=== PATIENT | male | born 1975 | race Caucasian/White ===

== ENCOUNTER 2022-10-04 09:11 | Outpatient (REF) | payer MEDICAID, OTHER, SELFPAY ==
[2022-10-04 15:22] LABS: Alanine Aminotransferase 25 U/L (0-40); Albumin Level 4.5 g/dL (3.5-5.0); Alkaline Phosphatase 69 U/L (39-117); Anion Gap 16 (12-20); Aspartate Amino Transferase 29 U/L (5-37); Blood Urea Nitrogen 23 mg/dL (9-16); Calcium 9.8 mg/dL (8.4-10.2); Carbon Dioxide 23 mmol/L (22-29); Chloride 99 mmol/L (96-108); Cholesterol 184 mg/dL; Estimated Glomerular Filt Rate > 60; Glucose Fasting 106 mg/dL (60-99); HDL Cholesterol 52 mg/dL; LDL Cholesterol Calculated 99 mg/dl; Potassium 3.9 mmol/L (3.3-5.1); Sodium 134 mmol/L (135-145); Total Protein 7.9 g/dL (6.5-8.0); Triglycerides 169 mg/dL
[2022-10-04 15:50] LABS: Folate 15.1 ng/mL (> or = 4.0); Vitamin B12 817 pg/mL (200-900)
== END 2022-10-04 09:12 | disposition home or self-care (01) ==
LOC: HO.CHCLDS 09:11
PROVIDERS: Visit Provider Internal Medicine
DX: E11.65 Type 2 diabetes mellitus with hyperglycemia (principal); F10.20 Alcohol dependence, uncomplicated
CPT/HCPCS: 36415; 80053; 80061; 82607; 82746

== ENCOUNTER 2022-10-31 10:01 | Outpatient (REF) | payer MEDICAID, OTHER, SELFPAY ==
[2022-11-01 04:28] LABS: ~HepC Num1 0.06 S/CO (0.00-0.79); ~Hepatitis C Antibody Nonreactive (Nonreactive)
[2022-11-01 04:40] LABS: Syphilis Screen Nonreactive (Nonreactive)
[2022-11-01 15:34] LABS: HIV RNA PCR Qn Copies NOT DETECTED copies/mL (NOT DETECTED); HIV RNA PCR Qn Log Copies NOT DETECTED (NOT DETECTED)
== END 2022-10-31 10:02 | disposition home or self-care (01) ==
LOC: HO.HHCL 10:01
PROVIDERS: Visit Provider Internal Medicine
DX: Z11.4 Encounter for screening for human immunodeficiency virus [HIV] (principal); Z11.3 Encounter for screening for infections with a predominantly sexual mode of transmission
CPT/HCPCS: 36415; 82550; 86780; 86803; 87536

== ENCOUNTER 2022-11-09 13:13 | Outpatient (REF) | payer MEDICAID, OTHER, SELFPAY ==
[2022-11-11 19:08] LABS: HIV RNA PCR Qn Copies NOT DETECTED copies/mL (NOT DETECTED); HIV RNA PCR Qn Log Copies NOT DETECTED (NOT DETECTED)
== END 2022-11-09 13:14 | disposition home or self-care (01) ==
LOC: HO.HHCL 13:13
PROVIDERS: Visit Provider Family Medicine
DX: Z11.4 Encounter for screening for human immunodeficiency virus [HIV] (principal); Z79.899 Other long term (current) drug therapy
CPT/HCPCS: 36415; 87536

== ENCOUNTER 2022-12-07 13:17 | Outpatient (REF) | payer MEDICAID, OTHER, SELFPAY ==
[2022-12-11 16:09] LABS: HIV RNA PCR Qn Copies NOT DETECTED copies/mL (NOT DETECTED); HIV RNA PCR Qn Log Copies NOT DETECTED (NOT DETECTED)
== END 2022-12-07 13:18 | disposition home or self-care (01) ==
LOC: HO.HHCL 13:17
PROVIDERS: Visit Provider Family Medicine
DX: Z79.899 Other long term (current) drug therapy (principal)
CPT/HCPCS: 36415; 87536

== ENCOUNTER 2023-01-12 11:34 | Outpatient (REF) | payer MEDICAID, OTHER, SELFPAY ==
[2023-01-12 14:45] LABS: Estimated Average Glucose 131 mg/dL; Hemoglobin A1c % 6.2 % (<6.0)
[2023-01-12 15:01] LABS: Alanine Aminotransferase 15 U/L (0-40); Albumin Level 4.3 g/dL (3.5-5.0); Alkaline Phosphatase 70 U/L (39-117); Anion Gap 11 (12-20); Aspartate Amino Transferase 15 U/L (5-37); Bilirubin Total 0.7 mg/dL (0.0-1.0); Blood Urea Nitrogen 17 mg/dL (9-16); Calcium 9.6 mg/dL (8.4-10.2); Carbon Dioxide 29 mmol/L (22-29); Chloride 100 mmol/L (96-108); Cholesterol 227 mg/dL (<200); Estimated Glomerular Filt Rate > 60; Glucose Fasting 114 mg/dL (60-99); HDL Cholesterol 36 mg/dL (>40); LDL Cholesterol Calculated 147 mg/dL (<100); Potassium 4.1 mmol/L (3.3-5.1); Sodium 136 mmol/L (135-145); Total Protein 7.6 g/dL (6.5-8.0); Triglycerides 222 mg/dL (<150)
[2023-01-12 15:29] LABS: Creatinine Urine 24.81 mg/dL; Microalbumin Urine < 5.0 mg/L
== END 2023-01-12 11:35 | disposition home or self-care (01) ==
LOC: HO.CHCLDS 11:34
PROVIDERS: Visit Provider Internal Medicine
DX: E11.65 Type 2 diabetes mellitus with hyperglycemia (principal)
CPT/HCPCS: 36415; 80053; 80061; 82043; 82570; 83036

== ENCOUNTER 2023-02-01 13:16 | Outpatient (REF) | payer MEDICAID, OTHER, SELFPAY ==
[2023-02-02 03:43] LABS: Syphilis Screen Nonreactive (Nonreactive)
[2023-02-02 03:54] LABS: ~HepC Num1 0.08 S/CO (0.00-0.79); ~Hepatitis C Antibody Nonreactive (Nonreactive)
[2023-02-07 19:04] LABS: HIV RNA PCR Qn Copies NOT DETECTED copies/mL (NOT DETECTED); HIV RNA PCR Qn Log Copies NOT DETECTED (NOT DETECTED)
== END 2023-02-01 13:17 | disposition home or self-care (01) ==
LOC: HO.HHCL 13:16
PROVIDERS: Visit Provider Internal Medicine
DX: Z11.4 Encounter for screening for human immunodeficiency virus [HIV] (principal); Z79.899 Other long term (current) drug therapy
CPT/HCPCS: 36415; 86780; 86803; 87536

== ENCOUNTER 2023-03-29 13:16 | Outpatient (REF) | payer MEDICAID, OTHER, SELFPAY ==
[2023-03-29 16:59] LABS: Alanine Aminotransferase 22 U/L (0-40); Albumin Level 4.4 g/dL (3.5-5.0); Alkaline Phosphatase 68 U/L (39-117); Aspartate Amino Transferase 18 U/L (5-37); Bilirubin Direct 0.2 mg/dL (0.0-0.5); Bilirubin Total 0.7 mg/dL (0.0-1.0); Cholesterol 141 mg/dL (<200); HDL Cholesterol 32 mg/dL (>40); LDL Cholesterol Calculated 82 mg/dL (<100); Total Protein 7.7 g/dL (6.5-8.0); Triglycerides 139 mg/dL (<150)
[2023-03-31 12:53] LABS: HIV RNA PCR Qn Copies NOT DETECTED copies/mL (NOT DETECTED); HIV RNA PCR Qn Log Copies NOT DETECTED (NOT DETECTED)
== END 2023-03-29 13:17 | disposition home or self-care (01) ==
LOC: HO.HHCL 13:16
PROVIDERS: Internal Medicine; Visit Provider Nurse Practitioner Primary Care
DX: Z11.4 Encounter for screening for human immunodeficiency virus [HIV] (principal); E78.2 Mixed hyperlipidemia; Z79.899 Other long term (current) drug therapy
CPT/HCPCS: 36415; 80061; 80076; 87536

== ENCOUNTER 2023-05-24 13:36 | Outpatient (REF) | payer MEDICAID, OTHER, SELFPAY ==
[2023-05-25 04:02] LABS: Syphilis Screen Nonreactive (Nonreactive)
[2023-05-25 04:12] LABS: ~HepC Num1 0.08 S/CO (0.00-0.79); ~Hepatitis C Antibody Nonreactive (Nonreactive)
[2023-05-26 20:14] LABS: HIV RNA PCR Qn Copies NOT DETECTED copies/mL (NOT DETECTED); HIV RNA PCR Qn Log Copies NOT DETECTED (NOT DETECTED)
== END 2023-05-24 13:37 | disposition home or self-care (01) ==
LOC: HO.HHCL 13:36
PROVIDERS: Visit Provider Internal Medicine
DX: Z79.899 Other long term (current) drug therapy (principal)
CPT/HCPCS: 36415; 86780; 86803; 87536

== ENCOUNTER 2023-07-19 10:51 | Outpatient (REF) | payer MEDICAID, OTHER, SELFPAY ==
[2023-07-19 12:03] LABS: Estimated Average Glucose 186 mg/dL; Hemoglobin A1c % 8.1 % (<6.0)
[2023-07-19 12:42] LABS: Alanine Aminotransferase 26 U/L (0-40); Albumin Level 4.1 g/dL (3.5-5.0); Alkaline Phosphatase 85 U/L (39-117); Anion Gap 11 (12-20); Aspartate Amino Transferase 17 U/L (5-37); Bilirubin Total 0.6 mg/dL (0.0-1.0); Blood Urea Nitrogen 12 mg/dL (9-16); Carbon Dioxide 23 mmol/L (22-29); Chloride 109 mmol/L (96-108); Cholesterol 134 mg/dL (<200); Estimated Glomerular Filt Rate > 60; Glucose Random 172 mg/dL (60-115); HDL Cholesterol 34 mg/dL (>40); LDL Cholesterol Calculated 80 mg/dL (<100); Potassium 4.1 mmol/L (3.3-5.1); Sodium 139 mmol/L (135-145); Total Protein 7.1 g/dL (6.5-8.0); Triglycerides 103 mg/dL (<150)
[2023-07-20 13:04] LABS: HIV RNA PCR Qn Copies NOT DETECTED copies/mL (NOT DETECTED); HIV RNA PCR Qn Log Copies NOT DETECTED (NOT DETECTED)
== END 2023-07-19 10:52 | disposition home or self-care (01) ==
LOC: HO.HHCL 10:51
PROVIDERS: Visit Provider Internal Medicine
DX: E11.65 Type 2 diabetes mellitus with hyperglycemia (principal); Z79.899 Other long term (current) drug therapy
CPT/HCPCS: 36415; 80053; 80061; 83036; 87536

== ENCOUNTER 2023-09-13 13:28 | Outpatient (REF) | payer MEDICAID, OTHER, SELFPAY ==
[2023-09-14 05:17] LABS: Syphilis Screen Nonreactive (Nonreactive); ~HepC Num1 0.05 S/CO (0.00-0.79); ~Hepatitis C Antibody Nonreactive (Nonreactive)
[2023-09-17 13:38] LABS: HIV RNA PCR Qn Copies NOT DETECTED copies/mL (NOT DETECTED); HIV RNA PCR Qn Log Copies NOT DETECTED (NOT DETECTED)
== END 2023-09-13 13:29 | disposition home or self-care (01) ==
LOC: HO.HHCL 13:28
PROVIDERS: Visit Provider Internal Medicine
DX: Z79.899 Other long term (current) drug therapy (principal)
CPT/HCPCS: 36415; 86780; 86803; 87536

== ENCOUNTER 2023-11-08 11:18 | Outpatient (REF) | payer MEDICAID, OTHER, SELFPAY ==
[2023-11-08 13:45] LABS: Estimated Average Glucose 134 mg/dL; Hemoglobin A1c % 6.3 % (<6.0)
[2023-11-10 15:33] LABS: HIV RNA PCR Qn Copies NOT DETECTED copies/mL (NOT DETECTED); HIV RNA PCR Qn Log Copies NOT DETECTED (NOT DETECTED)
== END 2023-11-08 11:19 | disposition home or self-care (01) ==
LOC: HO.HHCL 11:18
PROVIDERS: Visit Provider Internal Medicine
DX: Z79.899 Other long term (current) drug therapy (principal); E11.9 Type 2 diabetes mellitus without complications
CPT/HCPCS: 36415; 83036; 87536

== ENCOUNTER 2024-01-04 11:20 | Outpatient (REF) | payer MEDICAID, OTHER, SELFPAY ==
[2024-01-05 03:34] LABS: Syphilis Screen Nonreactive (Nonreactive)
[2024-01-07 19:58] LABS: HIV RNA PCR Qn Copies NOT DETECTED copies/mL (NOT DETECTED); HIV RNA PCR Qn Log Copies NOT DETECTED (NOT DETECTED)
== END 2024-01-04 11:21 | disposition home or self-care (01) ==
LOC: HO.HHCL 11:20
PROVIDERS: Visit Provider Internal Medicine
DX: Z79.899 Other long term (current) drug therapy (principal)
CPT/HCPCS: 36415; 86780; 87536

== ENCOUNTER 2024-01-22 13:07 | Outpatient (REF) | payer MEDICAID, OTHER, SELFPAY ==
[2024-01-22 15:15] LABS: Alanine Aminotransferase 22 U/L (0-40); Albumin Level 4.3 g/dL (3.5-5.0); Alkaline Phosphatase 71 U/L (39-117); Anion Gap 11 (12-20); Aspartate Amino Transferase 26 U/L (5-37); Bilirubin Total 0.8 mg/dL (0.0-1.0); Blood Urea Nitrogen 20 mg/dL (9-16); Calcium 9.3 mg/dL (8.4-10.2); Carbon Dioxide 25 mmol/L (22-29); Chloride 102 mmol/L (96-108); Cholesterol 139 mg/dL (<200); Estimated Glomerular Filt Rate > 60; Glucose Random 128 mg/dL (60-115); HDL Cholesterol 32 mg/dL (>40); LDL Cholesterol Calculated 83 mg/dL (<100); Potassium 3.9 mmol/L (3.3-5.1); Sodium 134 mmol/L (135-145); Total Protein 7.5 g/dL (6.5-8.0); Triglycerides 120 mg/dL (<150)
== END 2024-01-22 13:08 | disposition home or self-care (01) ==
LOC: HO.CHCLDS 13:07
PROVIDERS: Visit Provider Internal Medicine
DX: E11.9 Type 2 diabetes mellitus without complications (principal)
CPT/HCPCS: 36415; 80053; 80061

== ENCOUNTER 2024-03-07 11:23 | Outpatient (REF) | payer MEDICAID, OTHER, SELFPAY ==
[2024-03-07 13:18] LABS: Alanine Aminotransferase 25 U/L (0-40); Albumin Level 4.6 g/dL (3.5-5.0); Alkaline Phosphatase 78 U/L (39-117); Aspartate Amino Transferase 22 U/L (5-37); Bilirubin Direct 0.3 mg/dL (0.0-0.5); Total Protein 7.8 g/dL (6.5-8.0)
== END 2024-03-07 11:24 | disposition home or self-care (01) ==
LOC: HO.HHCL 11:23
PROVIDERS: Visit Provider Internal Medicine
DX: Z79.899 Other long term (current) drug therapy (principal)
CPT/HCPCS: 36415; 80076; 87536

== ENCOUNTER 2024-05-02 11:51 | Outpatient (REF) | payer MEDICAID, OTHER, SELFPAY ==
--- OUTSIDE RECORDS SUMMARY | 2024-05-02 13:44 | XMS_ITS | Encounter Summary ---
Author Organization [employer] Address [address] [facility] [address] [place] [address] Care Team Providers Care Template Reproduction Technician Name Role Phone Lee Vines MD Primary Care Prov ider Tamika Snyder DDS Unavailable [phone] Encounter Details Date Type Department Care Team ([facility] Contact Info) Description 04/10/2022 Orders Only [facility] MEDICINE [address] [place], [place] [phone] Lee Vines MD [address] [place], [place] [phone] On pre-exposure prophylaxis for HIV (Primary Dx) Social History Tobacco Use Types Packs/Day Years Used Date Smoking Tobacco: Some Days Cigarettes Smokeless Tobacco: Never Sex and Gender Information Value Date Recorded Sex Assigned at Male 12/26/2021 10:36 AM EDT Legal Sex Male 10:36 AM EDT Gender Identity Male 12/26/2021 10:36 AM EDT Sexual Orientation Straight 05/02/2022 9: 18 AM EST COVID-19 Exposure Response Date Recorded In the last 10 days, have yo u been in contact with someone who was confirmed or suspected to have Coronavirus/COVID-19? No / Unsure 04/04/2022 8:27 AM EST documented as of this encounter Plan of Treatment Upcoming Encounters Date Type Department Care Team (Late Contact Info) Description 05/08/2024 9:45 AM EDT Telemedicine [facility] MED & PEDS [address] [place], [place] [phone] Lee Vines MD [address] [place], [place] [phone] 07/04/2024 11:00 AM EDT Clinical Support [facility] [address] [place] [address] Guerita Fall, RN [address] [place] [address] documented as of this encounter Visit Diagnoses Diagnosis On pre-exposure prophylaxis for HIV- Primary documented in this encounter Care Teams Template Reproduction Technician Relationship Specialty Start Date End Date Lee Vines MD [address] [place] [address] PCP - General Internal Medicine 09/05/19 Tamika Snyder DDS [address] [place] [address] Dental Produce Sorter 01/30/24 documented as of this encounter
--- OUTSIDE RECORDS SUMMARY | 2024-05-02 13:44 | XMS_ITS | Clinical Summary ---
Author Organization [employer] [facility] it[facility] Address [address] [place] [address] Care Team Providers Care Naturopathic Oncology Provider Name Role Phone Haydee Frazier MD Primary Care Provider [phone] Family History Relation Name Status Comments Father Alive unknown Mother Alive dm, Social History Tobacco Use Types Packs/Day Years Used Date Smoking Tobacco: Never Alcohol Use Standard Drinks/Week Comments No 0 (1 standard drink = 0.6 oz pur e alcohol) Sex and Gender Information Value Date Recorded Sex Assigned at Not on file Legal Sex Male 7:33 PM EST Gender Identity Not on file Sexual Orientation Not on file Obstetrics History Plan of Treatment Health Maintenance Due Date Last Done Comments DTaP,Tdap,and Td Vaccines (1 - Tdap) 02/15/1995 Hepatitis B Vaccines (1 of 3 - 19+ 3-dose series) 02/15/1995 Cholesterol Screening (Lipid Panel) 03/27/2023 Colorectal Cancer Screening: Colonoscopy 03/27/2023 Depression Screening 03/27/2023 HIV Screening 03/27/2023 Hepatitis C Screening 03/27/2023 Social Influencers of Health Screening 03/27/2023 COVID-19 Vaccine ( - 2023-2 5 season) 2023 Influenza Vaccine (#1) 2023 HIB Vaccines Aged Out No longer eligi ble based on patient's age to complete this topic HPV Vaccines Aged Out No longer eligi ble based on patient's age to complete this topic Hepatitis A Vaccines Aged Out No long er eligible based on patient's age to complete this topic IPV Vaccines Aged Out No longer eligi ble based on patient's age to complete this topic MMR Vaccines Aged Out No longer eligi ble based on patient's age to complete this topic Meningococcal ACWY Vaccine Aged Out N o longer eligible based on patient's age to complete this topic Meningococcal B Vacine Aged Out No lo nger eligible based on patient's age to complete this topic Pneumococcal Vaccine: Pediat rics (0 to 5 Years) and At-Risk Patients (6 to 64 Years) Aged Out No longer eligible b ased on patient's age to complete this topic RSV Immunization Patients Un angelita 20 months Aged Out No longer eligible b ased on patient's age to complete this topic Varicella Vaccines Aged Out No longer eligible based on patient's age to complete this topic Care Teams Naturopathic Oncology Provider Relationship Specialty Start Date End Date Haydee Frazier MD [address] [place] [address] PCP - General 04/20/05
--- OUTSIDE RECORDS SUMMARY | 2024-05-02 13:44 | XMS_ITS | Encounter Summary ---
Author Organization [employer] Address [address] [facility] [address] [address] [place] [address] Care Team Providers Care Automotive Glass Installer Name Role Phone Lee Vines MD Primary Care Prov ider Tamika Snyder DDS Unavailable [phone] Encounter Details Date Type Department Care Team (Latest Contact Info) Description 05/02/2024 11:00 AM EST Clinical Support [facility] MEDICINE [address] [place], [place] [phone] Marj Doherty, RN [address] [place] [address] On pre-exposure prophylaxis for HIV (Primary Dx); Encounter for immunization Social History Tobacco Use Types Packs/Day Years Used Date Smoking Tobacco: Former Cigarettes Passive Smoke Exposure: Past Smokeless Tobacco: Current Comments:vapes Alcohol Use Standard Drinks/Week Comments Yes 6 (1 standard drink = 0.6 oz pur e alcohol) Depression Answer Date Recorded Patient Health Questionnaire-9 Score 0 05/16/2022 Housing Stability Answer Date Recorded What is your housing situation today? I have velia colón 12/11/[address] you li ve. Do you have problems with any of the following? None of the above 12/11/2022 Food Insecurity Answer Date Recorded Within the past 12 months, y ou worried that your food would run out before you got money to buy more: Never True 12/11/2022 Within the past 12 months,th e food you bought just didn't last and you didn't have enough money to get more: Never True Transportation Answer Date Recorded In the past 12 months, has l ack of transportation kept you from medical appts, meetings, work or from getting things needed for daily living? No 12/11/2022 Utilities Answer Date Recorded In the past 12 months, has t he [employer], [employer], oil or water [employer] threatened to shut off services in your home? No 12/11/2022 Depression Answer Date Recorded Patient Health Questionnaire-2 Score 0 05/16/2022 Sex and Gender Information Value Date Recorded Sex Assigned at Male 12/26/2021 10:36 AM EDT Legal Sex Male 10:36 AM EDT Gender Identity Male 12/26/2021 10:36 AM EDT Sexual Orientation Straight 05/02/2022 9: 18 AM EST documented as of this encounter Progress Notes * Marj Doherty RN - 05/02/2024 11:00 AM EST Pt here for 11th injection of APRETUDE (600-mg cabotegravir). Reports tolerating injections well with no concerns. Reviewed and confirmed: Negative HIV-1 ag/ab rapid test today. HIV-1 RNA assay test (HIV VL) negative or pending at time ofvisit - drawn today. No previous hypersensitivity reaction to cabotegravir. Reviewed medication list; pt is not taking carbamazepine, oxcarbazepine, phenobarbital, phenytoin, rifampin, or rifapentine. Pt weighs over 77 lbs. Pt does not have gluteal implants. Pt is not (or has consulted with a provider). N/A Pt does not have any symptoms of acute HIV (fever, fatigue, myalgia, sore throat, rash). LFTs: last done 03/07/24, next due 03/07/25 Hep B: not immune 04/07/22, started on Heplisav-B 05/02/24 All patient questions answered. Reviewed importance of attending lab and injection appointments. Reviewed that medication is an IM injection in gluteal muscle and cannot be taken out once it is given. 600 mg cabotegravir injected IM into L gluteal muscle. Pt advised to not rub the injection sites. Pt tolerated well, advised to remain 20 mins after injection, no adverse reaction noted. Pt given phone number for RN and PrEP navigator if they have any questions. Teaching points reviewed: Importance of adherence to injection and lab monitoring schedule, every 2 mos. Importance of contacting provider/RN for sooner HIV testing: When recent exposures to HIV-1 are suspected or clinical symptoms consistent with acute HIV-1 (eg, fever, fatigue, myalgia, sore throat, rash) are present Upon diagnosis of any other STI Reviewed long ???tail?? effect of medication. Apretude (IM cabotegravir) can be present in the body for up to 12 months after an injection, though not at a level to protect from HIV acquisition. There is a risk that if someone did acquire HIV-1 before, during, or within 12 mos of discontinuation of Apretude, that strain of HIV-1 could be resistant if they are not current on dosing or are not on a different form of PrEP, such as Truvada or Descovy. Counseled on site reaction and side effects (abdominal pain, jaundice, rash, depression etc.) that should be brought to provider attention. PrEP does not protect against STIs other than HIV, or other blood-borne pathogens. If you plan to miss a dose by more than 7 days, let us know as soon as possible so we can plan for this. You can take oral cabotegravir for up to 2 months to cover for 1 missed injection. If you anna dose by accident, contact us as soon as you can so we can make a plan to re-start PrEP - if desired and appropriate. Plan: PrEP Navigator check - in 1 week Thorough STI testing every other visit (every 4 mos) or sooner if needed in addition to HIV testing- done today 05/02/24 (swabs through state [facility]), next due 09/01/24 LFTs - done 03/07/24, next due 03/07/25 Return for HIV testing and Apretude injection: 07/04/24 11 am documented in this encounter Plan of Treatment Upcoming Encounters Date Type Department Care Team (Late st Contact Info) Description 05/08/2024 9:45 AM EDT Telemedicine [facility] CH[facility] MED & PEDS [address] [place], [place] [phone] Lee Vines MD [address] [place] [address] 07/04/2024 11:00 AM EDT Clinical Support [facility] MEDICINE [address] [place] [phone] Guerita Fall, RN [address] [place] [address] Scheduled Orders Name Type Priority Associated Diagnoses Orde r Schedule HIV-1 RNA, Quantitative, Real-Time PCR Lab Routine On pre-exposure prophylaxis for HIV Expected: 05/02/2024 (Approximate), Expires: 05/02/2025 Hepatitis C Antibody with Reflex to HCV, RNA, Quantitative, Real-Time PCR Lab Routine On pre-exposure prophylaxis for HIV Expected: 05/02/2024 (Approximate), Expires: 05/02/2025 Syphilis Screen Lab Routine On pre-exposure prophylaxis for HIV Expected: 05/02/2024 (Approximate), Expires: 05/02/2025 documented as of this encounter Procedures Procedure Name Priority Date/Time Associated Diagnosis Comments POCT RAPID HIV SCREENING Routine 05/02/2024 11:37 AM EST On pre-exposure prophylaxis for HIV documented in this encounter Results * POCT Rapid HIV Screening (05/02/2024 11:37 AM EST) Blood 05/02/2024 11:3 7 AM EST Narrative Marj Doherty, SANTIAGO - 05/02/2024 11:37 AM EST HIV ag/ab = negative Lamin Loco MD POINT OF CARE TEST ENTER/EDIT ORDERABLES Final Result documented in this encounter Visit Diagnoses Diagnosis On pre-exposure prophylaxis for HIV- Primary Encounter for immunization documented in this encounter Administered Medications Inactive Administered Medications - up to 3 most recent administrations Medication Order MAR Action Action Date Dose Rate Site Cabotegravir ER Suspension Extended Release 600 mg 600 mg, Intramuscular, Once, On Sun05/02/24 at 1145, For 1 dose, Ventrogluteal.Indication s:On pre-exposure prophylaxis for HIV Given 05/02/2024 11:45 AM EST 600 mg Left Upper Buttock documented in this encounter Additional Health Concerns Assessment Noted Time PHQ-9 Depression Total Score: 0 05/17/19 23 9:49 AM EDT documented as of this encounter Care Teams Automotive Glass Installer Relationship Specialty Start Date End Date Lee Vines MD [address] [place] [address] PCP - General Internal Medicine 09/05/19 Tamika Snyder DDS [address] [place] [address] Dental Vp Of Customer Experience Strategy 01/30/24 documented as of this encounter
--- OUTSIDE RECORDS SUMMARY | 2024-05-02 13:44 | XMS_ITS | Encounter Summary ---
Author Organization [employer] Address [address] [facility] 7t [place] [address] Care Team Providers Care Entry Examiner Name Role Phone Lee Vines MD Primary Care Prov ider Tamika Snyder DDS Unavailable [phone] Encounter Details Date Type Department Care Team (Latest Contact Info) Description 05/02/2024 Travel Social History Tobacco Use Types Packs/Day Years [...] the past 12 months, has t he electric, gas, oil or water company threatened to shut off services in your [...] Info) Description 05/08/2024 9:45 AM EDT Telemedicine [facility] CHC MED & PEDS [address] [place] [address] Lee Vines MD [address] [place] [address] 07/04/2024 11:00 AM EDT Clinical Support [facility] MEDICINE [address] [place] [address] Guerita Fall, RN [address] [place] [address] documented as of this encounter Visit Diagnoses Not on filedocumented in this encounter Additional Health Concerns Assessment Noted Time PHQ-9 Depression Total Score: 0 05/17/19 23 9:49 AM EDT documented as of this encounter Care Teams Entry Examiner Relationship Specialty Start Date End Date Lee Vines MD [address] [place] [address] PCP - General Internal Medicine 09/05/19 Tamika Snyder DDS [address] [place] [address] Dental Serging Machine Operator 01/30/24 documented as of this encounter
--- OUTSIDE RECORDS SUMMARY | 2024-05-02 13:44 | XMS_ITS | Encounter Summary ---
Author Organization [employer] Address [address] [facility] [address] [place] [address] Care Team Providers Care Line Mechanic Name Role Phone Lee Vines MD Primary Care Prov ider Tamika Snyder DDS Unavailable [phone] Encounter Details Date Type Department Care Team ([facility] st Contact Info) Description 12/19/2022 Orders Only [facility] CH[facility] MED & PEDS [address] [place], [place] [phone] Lee Vines MD [address] [place] [address] Social History Tobacco Use Types Packs/Day Years Used Date Smoking Tobacco: Some Days Cigarettes Passive Smoke Exposure: Never Smokeless Tobacco: Never Alcohol Use Standard Drinks/Week Comments Yes 6 [...] t he electric, gas, oil or water [employer] threatened to shut off services in your [...] Info) Description 05/08/2024 9:45 AM EDT Telemedicine [facility] CH[facility] MED & PEDS [address] [place] [address] Lee Vines MD [address] [place] [address] 07/04/2024 11:00 AM EDT Clinical Support [facility] MEDICINE [address] [place] [address] Guerita Fall, RN [address] [place] [address] documented as of this encounter Visit Diagnoses Not on filedocumented in this encounter Additional Health Concerns Assessment Noted Time PHQ-9 Depression Total Score: 0 05/17/19 23 9:49 AM EDT documented as of this encounter Care Teams Line Mechanic Relationship Specialty Start Date End Date Lee Vines MD [address] [place] [address] PCP - General Internal Medicine 09/05/19 Tamika Snyder DDS [address] [place] [address] Dental Commercial Floor Covering Installer 01/30/24 documented as of this encounter
--- OUTSIDE RECORDS SUMMARY | 2024-05-02 13:44 | XMS_ITS | Clinical Summary ---
Author Organization [employer] Address [address] [facility] [address] [place] [address] Care Team Providers Care Gun Welder Name Role Phone Lee Vines MD Primary Care Prov ider Tamika Snyder DDS Unavailable [phone] Allergies No known active allergies Medications TRUEplus Lancets 33G miscIndications:Ty pe 2 diabetes mellitus with hyperglycemia, without long-term current use of insulin (CMS/HCC) TEST BLOOD SUGAR EVERY DAY 100 each 11 05/02/19 23 Active Alcohol Swabs (SM Alcohol Prep) 70 % padsIndications:Ty pe 2 diabetes mellitus with hyperglycemia, without long-term current use of insulin (CMS/HCC) USE DIRECTED EVERY DAY 100 each 11 05/02/19 23 Active FREESTYLE LITE test stripIndications:T ype 2 diabetes mellitus with hyperglycemia, without long-term current use of insulin (CMS/HCC) TEST BLOOD SUGAR EVERY DAY 100 strip 11 05/02/19 23 Active naltrexone (Depade) 50 MG tabletIndications: Alcohol use disorder, severe, dependence (CMS/HCC) TAKE 1 TABLET BY MOUTH EVERY DAY 30 tablet 1 12/19/19 23 Active lisinopril 30 MG tabletIndications: Primary hypertension Take 1 tablet (30 mg) by mouth Once per day. 90 tablet 3 10/08/19 24 Active empagliflozin (Jardiance) 25 MG Take 1 tablet (25 mg) by mouth Once per day. 90 tablet 3 10/08/19 24 025 Active metFORMIN (Glucophage) 1000 MG tabletIndications: Type 2 diabetes mellitus without complication, without long-term current use of insulin (CMS/HCC) Take 1 tablet (1,000 mg) by mouth 2 times daily. 180 tablet 3 10/08/19 24 Active atorvastatin (Lipitor) 40 MG tabletIndications: Mixed hyperlipidemia Take 1 tablet (40 mg) by mouth Once per day. 90 tablet 3 10/08/19 24 Active cetirizine (ZyrTEC) 10 MG tabletIndications: Seasonal allergies TAKE ONE TABLET DAILY 90 tablet 3 12/26/19 24 Active sildenafil (Viagra) 100 MG tabletIndications: Erectile dysfunction due to diseases classified elsewhere TAKE 1 TABLET 1 HOUR BEFORE SEXUAL RELATIONS ONCE DAILY NEEDED. 30 tablet 3 12/26/19 24 Active Cabotegravir ER (Apretude) 600 MG/3ML Suspension Extended ReleaseIndications :On pre-exposure prophylaxis for HIV Inject 600 mg/3 ML IM Ventrogluteal every 8 weeks 3 mL 5 01/07/20 24 Active Blood Pressure kit 1 kit Once per day. 1 kit 01/09/20 24 Active Blood Glucose Monitoring Suppl (FreeStyle Lite) w/Device kit 1 kit Once per day. 1 kit 03/03/19 25 Active Hospital, Clinic, or Other Facility Administered Medication Ordered Dose Route Frequency Start Date End Date Status Cabotegravir ER Suspension Extended Release 600 mgIndications:On pre-exposure prophylaxis for HIV 600 mg IM Once 05/02/2024 05/02/2024 Ended Active Problems Problem Noted Date Diagnosed Date Type 2 diabetes mellitus without complication Vitamin D deficiency 01/09/2024 Essential hypertension 01/09/2024 Assessment & Plan (01/09/2024 6:57 PM EST): Controlled, continue lisinopril, bp target <130/80, keep bp log, keep low sodium diet On pre-exposure prophylaxis for HIV 07/04/2022 Assessment & Plan (07/04/2022 12:46 PM EDT): Discussed risk vs benefits of starting apretude, order will be placed, CRS aware Screening and evaluation for vasectomy Assessment & Plan (05/16/2022 10:01 AM EDT): Patient refers wants to be evaluated for a vasectomy, he has 7 kids, oriented of procedure, will refer to urologist Primary hypertension 04/04/2022 Assessment & Plan (10/08/2023 9:55 AM EDT): Controlled, continue lisinopril, encouraged low sodium diet and exercise as tolerated Assessment & Plan (07/03/2023 1:37 PM EDT): Controlled, continue current therapy, keep low sodium diet and exercise as tolerated Assessment & Plan (03/13/2023 3:19 PM EST): Controlled, reinforced low sodium diet and exercise as tolerated, continue same therapy, target <130/80 Assessment & Plan (12/12/2022 2:59 PM EDT): Controlled refers at home remains below 130/80, reinforced low sodium diet and exercise as tolertated, will follow up in 3 months Assessment & Plan (09/25/2022 1:35 PM EDT): Controlled, on lisinopril, reinforced low sodium diet and exercise as tolerated, no changes will be made Assessment & Plan (05/16/2022 9:58 AM EDT): Controlled, reinforced low sodium diet and exercise as tolerated Assessment & Plan (04/04/2022 10:21 PM EST): Not at target, will increase lisinopril to 30mg, reinforced low sodium diet and exercise as tolerated, follow up in 1 month Type 2 diabetes mellitus wit h hyperglycemia, without long-term current use of insulin 04/04/2022 Assessment & Plan (01/09/2024 6:58 PM EST): On metformin and jardiance, A1c less than 7.0%, eye exam done, keep low carb/no sugar diet. Follow up in 3 months Assessment & Plan (10/08/2023 9:56 AM EDT): Not at target, he has not been adhering to diet, has been on his medications, shaun send new lab order to check A1c. Keep low carb/no sugar diet, follow up in 3 months Assessment & Plan (07/03/2023 1:38 PM EDT): Last A1c from 01/12 was 6.2%, no changes will be made, continue metformin and jardiance, follow up in 3 monts Foot exam done was unremarkable Assessment & Plan (03/13/2023 3:19 PM EST): Controlled A1c from 12/2022 was 6.2%, continue same treatment, low carb/no sugar diet reinfoced Assessment & Plan (12/12/2022 2:59 PM EDT): Controlled, no reported episode of hypoglycemia, on metformin and jardiance, will leave blood work to be done in 1 month Assessment & Plan (09/25/2022 1:37 PM EDT): No episode of hypoglycemia, on metformin/jardiance, last a1c from 06/2022 was 6.6%, no changes will be made Follow up on 3 months Assessment & Plan (07/04/2022 12:47 PM EDT): Controlled, continue current therapy, a1c was 6.6% Assessment & Plan (05/16/2022 9:59 AM EDT): Will refer to optometry for yearly exam Assessment & Plan (04/04/2022 10:22 PM EST): A1c 7.1%, reinforced low carb/no sugar diet, exercise as tolerated, no changes will be made Foot examination was unremarkable Erectile dysfunction due to diseases classified elsewhere 04/04/2022 Assessment & Plan (07/03/2023 1:38 PM EDT): Viagra will be increased to 100mg Mixed hyperlipidemia 04/04/2022 Assessment & Plan (01/09/2024 6:59 PM EST): On atorvastatin ldl within target, no changes will be made Assessment & Plan (10/08/2023 9:57 AM EDT): Controlled as per last labs from 06/2023, continue atorvastatin, keep low cholesterol diet and exercise as tolerated Assessment & Plan (07/03/2023 1:39 PM EDT): On atorvastatin 40mg, no changes will be made, new labs will be ordered for guidance of therapy Assessment & Plan (03/13/2023 3:21 PM EST): He refers was not taking atorvastatin as prescribed, new lab order will be placed, he refers has been taking it daily for over 2-3 weeks, reviewed importance of medication adherance Assessment & Plan (09/25/2022 1:39 PM EDT): On atorvastatin 40mg, will order new cmp/lipid panel for guidance of therapy Assessment & Plan (04/04/2022 10:23 PM EST): On statin therapy, reinforced importance of diet Encounters Date Type Department Care Team Description 05/02/2024 11:00 AM EST Clinical Support [address] [address] Marj Doherty, RN On pre-exposure prophylaxis for HIV (Primary Dx); Encounter for immunization 05/02/2024 Travel 03/07/2024 11:00 AM EST Clinical Support [address] [address] Marj Doherty, RN On pre-exposure prophylaxis for HIV (Primary Dx) 03/07/2024 Orders Only [facility] [address] [place] [address] Lee Vines MD 03/07/2024 Travel 02/29/[address] [facility] [address] [place] [address] Lee Vines MD from Last 3 Months Immunizations Name Administration Dates Next Due Hep B, adult 06/10/2019,04/29/2019 HepB-CpG 05/02/2024 Influenza Injectable Quadriv alant Preservative Free IIV4 MDCK 12/19/2022 Influenza injectable quadriv alent IIV4 with preservative 04/01/2019 Influenza injectable quadriv alent preservative free 12/12/2021,12/20/2020,12/02/2019 Influenza, Injectable, MDCK, preservative free 11/08/2023 Moderna Covid-19 Vaccine 12+ 02/28/2021,07/16/19 21,06/17/2020 Pneumococcal Conjugate PCV 20 01/09/2024 Pneumococcal Polysaccharide PPSV23 08/15/2016 Tdap 04/01/2019,07/21/2017 Social History Tobacco Use Types Packs/Day Years Used Date Smoking Tobacco: Former Cigarettes Passive Smoke Exposure: Past Smokeless Tobacco: Current Tobacco Cessation:Ready to Q uit: Not Asked Comments:vapes Alcohol Use Standard Drinks/Week Comments Yes 6 (1 standard drink = 0.6 oz pur e alcohol) Depression Answer Date Recorded Patient Health Questionnaire-9 Score 0 05/16/2022 Housing Stability Answer Date Recorded What is your housing situation today? I have velia katarzyna 12/11/[address] you li [...] Orientation Straight 05/02/2022 9: 18 AM EST Last Filed Vital Signs Vital Sign Reading Time Taken Comments Blood Pressure 124/78 01/22/2024 11:12 AM EST Pulse 65 01/22/2024 11:12 AM EST Temperature 36.3 ??C (97.3 ??F) 01/09/2024 4:06 PM ES T Respiratory Rate 12 01/09/2024 4:06 PM EST Oxygen Saturation 98% 01/09/2024 4:06 PM EST Inhaled Oxygen Concentration - - Weight 86 kg (189 lb 9.6 oz) 01/09/2024 4:06 PM EST Height 165.1 cm (5' 5 ) 01/09/2024 4:06 PM EST Body Mass Index 31.55 01/09/2024 4:06 PM EST Plan of Treatment Upcoming Encounters Date Type Department Care Team (Late st Contact Info) Description 05/08/2024 9:45 AM EDT Telemedicine [facility] MED & PEDS [address] [place] [address] UngerLee Bowie MD [address] [place] [address] 07/04/2024 11:00 AM EDT Clinical Support [facility] MEDICINE [address] [place] [address] Guerita Fall, SANTIAGO [address] [place] [address] Health Maintenance Due Date Last Done Comments CT Colonography 1976 FIT DNA/Cologuard 1976 FIT 1976 FOBT 1976 Sigmoidoscopy 1976 Alcohol/Substance Use Screening 1988 Family Planning (PISQ) 02/15/1991 Depression Screening 05/17/2023 05/16/2022, 05/17/19 23 SDOH Screening 05/17/2023 05/16/2022 COVID-19 Vaccine ( season) 2023 02/28/2021, 07/15/2020, 06/17/2020 Diabetes: Urine Protein Screening 01/13/2024 01/12/2023, 02/21/2021, 04/04/2019 Dental Oral Exam 01/20/2024 07/19/2023, , 06/09/2022 Diabetes: Hemoglobin A1C 05/07/2024 024, 07/19/2023, 01/12/2023, Additional history exists Diabetes: Foot Exam 07/02/2024 07/03/2023, 07/03/2023, 07/03/2023, Additional history exists Dental X-Ray: Bitewings 07/19/2024 07/19/2023, 06/09 Dental Prophylaxis 07/22/2024 01/22/2024, 0 07/19/2023, 12/19/2022, Additional history exists Lipid Panel 01/21/2025 01/22/2024, 052 04/2023, 03/29/2023, Additional history exists Tobacco Screening 01/21/2025 01/22/2024 Dental X-Ray: Full Mouth 06/10/2025 06/09/2022 Eye Exam 08/27/2025 08/28/2023, 07/0 03/2023, 08/28/2023, Additional history exists Zoster Vaccines (1 of 2) 02/15/2026 Colonoscopy 08/29/2027 Colorectal Cancer Screening 08/29/2027 DTaP/Tdap/Td Vaccines (3 - Td or Tdap) 04/01/2029 04/01/2019, 07/21/2017 RSV Patients and Patients Aged 60 years or older (1 - 1-dose 75+ series) 02/15/2051 Hepatitis C Screening Completed 09/13/2023 , 05/24/2023, 02/01/2023, Additional history exists Influenza Vaccine Completed 11/08/2023, , 12/12/2021, Additional history exists Pneumococcal Vaccine: Pediatrics (0 to 5 Years) and At-Risk Patients (6 to 49) Years) Completed 01/09/2024, 08/15/2016 HIV Screening Completed 03/07/2024, 09/2023, 11/08/2023, Additional history exists Hepatitis B Vaccines Completed 05/02/2024, 06/10/2019, 04/29/2019 HIB Vaccines Aged Out No longer eligi [...] patient's age to complete this topic Meningococcal Vaccine Aged Out No josy laila eligible based on patient's age to complete this topic RSV under 20 months Aged Out No longe r eligible based on patient's age to complete this topic Rotavirus Vaccines Aged Out No longer eligible based on patient's age to complete this topic Procedures Procedure Name Priority Date/Time Associated Diagnosis Comments POCT RAPID HIV SCREENING Routine 05/02/2024 11:37 AM EST On pre-exposure prophylaxis for HIV POCT RAPID HIV SCREENING Routine 03/07/2024 1:12 PM EST On pre-exposure prophylaxis for HIV HIV 1 RNA, QUANTITATIVE REAL TIME PCR Routine 03/07/2024 11:24 AM EST HEPATIC FUNCTION PANEL Routine 03/07/2024 11:24 AM EST LIPID PANEL, STANDARD Routine 01/22/2024 1:08 PM EST Type 2 diabetes mellitus without complication, without long-term current use of insulin (CMS/HCC) PROPHYLAXIS - ADULT Routine 01/22/2024 1 1:00 AM EST HEMOGLOBIN A1C Routine 11/08/2023 11:20 AM EDT Type 2 diabetes mellitus without complication, without long-term current use of insulin (CMS/HCC) HEPATITIS C AB W/REFL TO HCV RNA, QN, PCR Routine 09/13/2023 1:31 PM EDT BITEWINGS - 4 RADIOGRAPHIC IMAGES Routine 07/19/2023 9:00 AM EDT PERIODIC ORAL EVALUATION - ESTABLISHED PATIENT Routine 07/19/2023 9:00 AM EDT ALBUMIN, RANDOM URINE W/CREATININE Routine 01/12/2023 11:40 AM EST INTRAORAL - COMPLETE SERIES OF RADIOGRAPHIC IMAGES Routine 06/09/2022 9:00 AM EDT from Last 3 Months or Most Recently Relevant to Health Maintenance Results * POCT Rapid HIV Screening (05/02/2024 11:37 AM EST) Only the most recent of2 resultswithin the time period is included. Blood 05/02/2024 11:3 7 AM EST Narrative Marj Doherty RN - 05/02/2024 11:37 AM EST HIV ag/ab = negative us Lamin Loco MD POINT OF CARE TEST ENTER/EDIT ORDERABLES Final Result * HIV-1 RNA, Quantitative, Real-Time PCR (03/07/2024 11:24 AM EST) HIV RNA PCR Qn Copies TNP [facility] HIV RNA PCR Qn Log Copies [facility] Comment:Result Units: Log co pies/mLTEST NOT PERFORMEDNo suitable specimen received.Please review the testrequirements [email or web address] TEST WAS PERFORMED AT:[employer] [place] [phone] MASON MD 03/07/2024 11:2 4 AM EST 03/07/2024 12:54 PM EST us Lee Bautista MD LAB BLOOD ORDERABL ES Final Result [facility] [address] [place] [phone] * Hepatic Function Panel (03/07/2024 11:24 AM EST) Bilirubin, Total 1.0 0.0 - 1.0 mg/dL [facility] Bilirubin, Direct 0.3 0.0 - 0.5 mg/dL [facility] Aspartate Amino Transferase 22 5 - 37 U/L [facility] Alanine Aminotransferase 25 0 - 40 U/L [facility] Total Protein 7.8 6.5 - 8.0 g/dL [facility] Albumin Level 4.6 3.5 - 5.0 g/dL [facility] Alkaline Phosphatase 78 39 - 117 U/L [facility] 03/07/2024 11:2 4 AM EST 03/07/2024 12:54 PM EST Lee Bautista MD LAB BLOOD ORDERABL ES Final Result Performing Organization Address [facility] Co de Phone Number [facility] [address] [place] [phone] * (ABNORMAL) Lipid Panel, Standard (01/22/2024 1:08 PM EST) Triglycerides 120 <150 mg/dL [facility] Comment:Desirable Triglyceri de: less than 150 mg/dLBorderline High Triglyceride 150-199 mg/dLHigh Triglyceride: 200-499 mg/dLVery High Triglyceride: greater than or equal to 5OO mg/dL Cholesterol 139 <200 mg/dL [facility] Comment:Desirable Cholestero l: less than 200 mg/dLBorderline High Cholesterol: 200-239 mg/dLHigh Cholesterol: greater than 239 mg/dL LDL Cholesterol Calculated 83 <100 mg/dL [facility] Comment:Desirable LDL: less than 100 mg/dLNear Optimal/Above Optimal LDL: 110- 129 mg/dLBorderline High LDL: 130-159 mg/dLHigh LDL: 160-189 mg/dLVery High LDL: greater than or equal to 190 mg/dL HDL Cholesterol 32(L) >40 mg/dL [facility] Comment:Desirable HDL: great er than 40 mg/dL Note: This HDL assay may give artificially low results in patients with liver disease. Blood Venous blood specimen / Unknown 01/22/2024 1:08 PM EST 01/22/2024 2:29 PM EST us Lee Bautista MD LAB BLOOD ORDERABL ES Final Result Performing Organization Address [facility] Co de Phone Number [facility] [address] [place] [phone] * (ABNORMAL) Hemoglobin A1c (11/08/2023 11:20 AM EDT) Hemoglobin A1c 6.3(H) <6.0 % [facility] Comment:Hemoglobin A1C Refer ence Range Adults: 4.8 - 6.0 % Non diabetic: < 6.0 % Goal: < 7.0 %Additional Action Suggested: > 8.0 %Note: Hemoglobin A1c results are invalid for patients with abnormal amounts of HbF. Blood transfusions may impact the HbA1c concentration in the patient sample. Estimated Average Glucose 134 mg/dL [facility] Comment:eAG = Estimated ave rage glucose which is %A1C expressed asaverage glucose, using the formula of the L8C-CurmaufUldwpdm Glucose study (ADAG), Diabetes Care, Vol.31,#8,Sep. 2007 Blood Venous blood specimen / Unknown 11/08/2023 11:20 AM EDT 11/08/2023 1:24 PM EDT us Lee Bautista MD LAB BLOOD ORDERABL ES Final Result Performing Organization Address [facility]/ZIP Co de Phone Number [facility] [address] [place] [phone] * Hepatitis C Antibody with Reflex to HCV, RNA, Quantitative, Real-Time PCR (09/13/2023 1:31 PM EDT) Hepatitis C Antibody Nonreactive Nonreactive [facility] Comment:Antibodies to HCV no t detected; does not exclude early acuteHCV infection. 09/13/2023 1:31 PM EDT 09/13/2023 3:55 PM EDT us Lee Bautista MD LAB BLOOD ORDERABL ES Final Result Performing Organization Address [facility]/ZIP Co de Phone Number [facility] [address] [place] [phone] * Albumin, Random Urine W/Creatinine (01/12/2023 11:40 AM EST) Creatinine, Urine 24.81 mg/dL [facility] Microalbumin Urine <5.0 mg/L [facility] Microalbum Creatinine Ratio Ur TNP <30 ug/mg cr [facility] Comment:Unable to calculate albumin/creatinine ratio due to lowmicroalbumin or creatinine result. 01/12/2023 11:4 0 AM EST 01/12/2023 2:31 PM EST us Lee Bautista MD LAB URINE ORDERABL ES Final Result [facility] [address] [place] [phone] from Last 3 Months or Most Recently Relevant to Health Maintenance [place] - [place] FULL (MEDICAID) Care Teams Gun Welder Relationship Specialty Start Date End Date Lee Vines MD [address] [place] [address] PCP - General Internal Medicine 09/05/19 Tamika Snyder DDS [address] [place] [address] Dental Fly Tier 01/30/24
--- OUTSIDE RECORDS SUMMARY | 2024-05-02 13:44 | XMS_ITS | Encounter Summary ---
Author Organization [employer] Address [address] [place] [address] [address] [place] [address] Care Team Providers Care Virtualization Consultant Name Role Phone Lee Vines MD Primary Care Prov ider Tamika Snyder DDS Unavailable [phone] Encounter Details Date Type Department Care Team (Latest Contact Info) Description 04/01/2019 Abstract [facility] Dental, Provider, DDS Social History Tobacco Use Types Packs/Day Years Used Date Smoking Tobacco: Never Assessed Sex and Gender Information Value Date Recorded Sex Assigned at Male 12/26/2021 10:36 AM EDT Legal Sex Male 10:36 AM EDT Gender Identity Male 12/26/2021 10:36 AM EDT Sexual Orientation Straight 05/02/2022 9: 18 AM EST documented as of this encounter Plan of Treatment Upcoming Encounters Date Type Department Care Team (Late st Contact Info) Description 05/08/2024 9:45 AM EDT Telemedicine [facility] PEDS [address] [place] [address] Lee Vines MD [address] [place] [address] 07/04/2024 11:00 AM EDT Clinical Support [facility] MEDIC[facility] [address] [place] [address] Guerita Fall, RN [address] [place] [address] documented as of this encounter Visit Diagnoses Not on filedocumented in this encounter Care Teams Virtualization Consultant Relationship Specialty Start Date End Date Lee Vines MD [address] [place] [address] PCP - General Internal Medicine 09/05/19 Tamika Snyder DDS [address] [place] [phone] Dental Metal Polisher 01/30/24 documented as of this encounter
--- OUTSIDE RECORDS SUMMARY | 2024-05-02 13:44 | XMS_ITS | Encounter Summary ---
Author Organization [employer] Address [address] [place] [address] 7 [place] [address] Care Team Providers Care Radio Intelligence Operator Name Role Phone Lee Vines MD Primary Care Prov ider Tamika Snyder DDS Unavailable [phone] Encounter Details Date Type Department Care Team (Latest Contact Info) Description 09/09/2020 Abstract [facility] Dental, Provider, DDS Social History Tobacco [...] Upcoming Encounters Date Type Department Care Team ( st Contact Info) Description 05/08/2024 9:45 AM EDT Telemedicine [facility] PEDS [address] [place] [address] Lee Vines MD [address] [place] [address] 07/04/2024 11:00 AM EDT Clinical Support [facility] MEDICINE [address] [place] [address] Guerita Fall, RN [address] [place] [address] documented as of this encounter Visit Diagnoses Not on filedocumented in this encounter Care Teams Radio Intelligence Operator Relationship Specialty Start Date End Date Lee Vines MD [address] [place] [address] PCP - General Internal Medicine 09/05/19 Tamika Snyder DDS [address] [place] [phone] Dental [employer] C[employer] Developer 01/30/24 documented as of this encounter
--- OUTSIDE RECORDS SUMMARY | 2024-05-02 13:44 | XMS_ITS | Encounter Summary ---
Author Organization [employer] Address [address] [facility] [address]t [place] [address] Care Team Providers Care Cook Relief Name Role Phone Lee Vines MD Primary Care Prov ider Tamika Snyder DDTrae Unavailable [phone] Reason for Visit * Reason Comments Med Refill Encounter Details Date Type Department Care Team ([facility] st Contact Info) Description 12/15/2022 Refill [facility] MED & PEDS [address] [place], [place] [phone] Lee Vines MD [address] [place] [address] Type 2 diabetes mellitus with hyperglycemia, without long-term current use of insulin (CMS/HCC); Alcohol use disorder, severe, dependence (CMS/HCC) Social History Tobacco Use Types Packs/Day Years [...] AM EST documented as of this encounter Miscellaneous Notes * Telephone Encounter - Marj Doherty RN - 12/18/2022 8:00 AM EDT Pt is no longer on Descovy. Will cue naltrexone separately. documented in this encounter Plan of Treatment Upcoming Encounters Date Type Department Care Team (Late st Contact Info) Description 05/08/2024 9:45 AM EDT Telemedicine [facility] MED & PEDS [address] [place] [address] Lee Vines MD [address] [place] [address] 07/04/2024 11:00 AM EDT Clinical Support [facility] MEDICINE [address] [place] [address] Guerita Flal, SANTIAGO [address] [place] [address] documented as of this encounter Visit Diagnoses Diagnosis Type 2 diabetes mellitus with hyperglycemia, without long-term current use of insulin (CMS/HCC) Alcohol use disorder, severe, dependence (CMS/HCC) documented in this encounter Additional Health Concerns Assessment Noted Time PHQ-9 Depression Total Score: 0 05/17/19 9:49 AM EDT documented as of this encounter Care Teams Cook Relief Relationship Specialty Start Date End Date Lee Vines MD [address] [place] [address] PCP - General Internal Medicine 09/05/19 Tamika Snyder DDS [address] [place] [address] Dental Auto [employer] Safety Program Coordinator 01/30/24 documented as of this encounter
[2024-05-03 08:20] LABS: Syphilis Screen Nonreactive (Nonreactive)
[2024-05-03 08:34] LABS: ~HepC Num1 0.09 S/CO (0.00-0.79); ~Hepatitis C Antibody Nonreactive (Nonreactive)
[2024-05-03 17:43] LABS: HIV RNA PCR Qn Copies NOT DETECTED copies/mL (NOT DETECTED); HIV RNA PCR Qn Log Copies NOT DETECTED (NOT DETECTED)
== END 2024-05-02 11:52 | disposition home or self-care (01) ==
LOC: HO.HHCL 11:51
PROVIDERS: Visit Provider Internal Medicine
DX: Z79.899 Other long term (current) drug therapy (principal)
CPT/HCPCS: 36415; 86780; 86803; 87536

== ENCOUNTER 2024-07-04 11:37 | Outpatient (REF) | payer MEDICAID, OTHER, SELFPAY ==
--- OUTSIDE RECORDS SUMMARY | 2024-07-04 12:05 | XMS_ITS | Encounter Summary ---
Author Organization [employer] Address [address] [facility] 7t [place] [address] Care Team Providers Care County Historian Name Role Phone Lee Vines MD Primary Care Prov ider Tamika Snyder DDS Unavailable [phone] Encounter Details Date Type Department Care Team (Latest Contact Info) Description 07/04/2024 Travel Social History Tobacco Use Types Packs/Day Years Used Date Smoking Tobacco: Former Cigarettes Passive Smoke Exposure: Past Smokeless Tobacco: Current Comments:vapes Alcohol Use Standard Drinks/Week Comments Yes 6 (1 standard drink = 0.6 oz pur e alcohol) Depression Answer Date Recorded Patient Health Questionnaire-9 Score 0 06/24/2024 Patient Health Questionnaire-9 Score 0 06/24/2024 Last PHQ-9: Questionnaire Data Not on file 0 06/24/2024 Housing Stability Answer Date Recorded What is your housing situation today? I have velia colón 06/24/[address] you li ve. Do you have problems with any of the following? None of the above 06/24/2024 Food Insecurity Answer Date Recorded Within the past 12 months, y ou worried that your food would run out before you got money to buy more: Never True 06/24/2024 Within the past 12 months,th e food you bought just didn't last and you didn't have enough money to get more: Never True Transportation Answer Date Recorded In the past 12 months, has l ack of transportation kept you from medical appts, meetings, work or from getting things needed for daily living? No 06/24/2024 Utilities Answer Date Recorded In the past 12 months, has t he electric, gas, oil or water company threatened to shut off services in your home? No 06/24/2024 Depression Answer Date Recorded Patient Health Questionnaire-2 Score 0 06/24/2024 Internet Access Answer Date Recorded Internet Access Q1 Yes 06/24/2024 Internet Access Q2 Not on file 06/24/2024 Sex and Gender Information Value Date Recorded Sex Assigned at Male 12/26/2021 10:36 AM EDT Legal Sex Male 10:36 AM EDT Gender Identity Male 12/26/2021 10:36 AM EDT Sexual Orientation Straight 05/02/2022 9: 18 AM EST documented as of this encounter Plan of Treatment Upcoming Encounters Date Type Department Care Team (Late st Contact Info) Description 07/23/2024 10:00 AM EDT Office Visit [facility] ADULT DENTAL [address] [place] [address] Socorro Acuña 09/23/2024 1:15 PM EDT Telemedicine [facility] MED [facility] PED[facility] [address] [place] [address] Lee Vines MD [address] [place] [address] 10/03/2024 3:00 PM EDT Office Visit [facility] OPTOMETRY [address] [place] [address] Joel, Jyoti, OD [address] [place] [address] documented as of this encounter Visit Diagnoses Not on filedocumented in this encounter Additional Health Concerns Assessment Noted Time PHQ-9 Depression Total Score: 0 06/25/19 25 2:24 PM EDT documented as of this encounter Care Teams County Historian Relationship Specialty Start Date End Date eLe Vines MD [address] [place] [address] PCP - General Internal Medicine 09/05/19 Tamika Snyder DDS [address] [place] [address] Dental Pharmacy Intake Technician 01/30/24 documented as of this encounter
--- OUTSIDE RECORDS SUMMARY | 2024-07-04 12:05 | XMS_ITS | Clinical Summary ---
Author Organization [employer] [facility] ity Address [address] [place] [address] Care Team Providers Care Facilities Custodian Name Role Phone Haydee Frazier MD Primary Care Provider [phone] Family History Relation Name Status Comments Father [...] Influencers of Health Screening 03/27/2023 COVID-19 Vaccine (2023-2 5 season) 2023 Influenza Vaccine (Season Ended) 2024 HIB Vaccines Aged Out No longer eligi [...] age to complete this topic Meningococcal B Vaccine Aged Out No l onger eligible based on patient's age to complete [...] age to complete this topic Care Teams Facilities Custodian Relationship Specialty Start Date End Date Haydee Frazier MD [address] [place] [address] PCP - General 04/20/05
--- OUTSIDE RECORDS SUMMARY | 2024-07-04 12:05 | XMS_ITS | Encounter Summary ---
Author Organization [employer] Address [address] [place] [address] 7 [place] [address] Care Team Providers Care Machine Bunch Maker Name Role Phone Lee Vines MD Primary Care Prov ider Tamika Snyder DDS Unavailable [phone] Encounter Details Date Type Department Care Team (Latest Contact Info) Description 09/09/2020 Abstract [facility] CONVERSIONS Dental, Provider, DDS Social History Tobacco [...] Description 07/23/2024 10:00 AM EDT Office Visit [facility] ADULT DENTAL [address] [place] [address] Socorro Acuña 09/23/2024 1:15 PM EDT Telemedicine [facility] MED & PEDS [address] [place] [address] Lee Vines MD [address] [place] [address] 10/03/2024 3:00 PM EDT Office Visit [facility] OPTOMETRY [address] [place] [address] Jyoti Maldonado, OD [address] [place] [address] documented as of this encounter Visit Diagnoses Not on filedocumented in this encounter Care Teams Machine Bunch Maker Relationship Specialty Start Date End Date Lee Vines MD [address] [place] [address] PCP - General Internal Medicine 09/05/19 Tamika Snyder DDS [address] [place] [address] Dental Director Foundation 01/30/24 documented as of this encounter
--- OUTSIDE RECORDS SUMMARY | 2024-07-04 12:05 | XMS_ITS | Encounter Summary ---
Author Organization [employer] Address [address] [facility] [address] [place] [address] Care Team Providers Care Combo Welder Name Role Phone Lee Vines MD Primary Care Prov ider Tamika Snyder DDS Unavailable [phone] Encounter Details Date Type Department Care Team (Latest Contact Info) Description 07/04/2024 11:00 AM EDT Clinical Support [facility] MEDICINE [address] [place] [address] Guerita Fall, SANTIAGO [address] [place] [address] On pre-exposure prophylaxis for HIV Social History Tobacco Use Types Packs/Day Years [...] Description 07/23/2024 10:00 AM EDT Office Visit [facility] ADULT DENTAL [address] [place] [address] Socorro Acuña 09/23/2024 1:15 PM EDT Telemedicine [facility] MED & PEDS [address] [place] [address] Lee Vines MD [address] [place] [address] 10/03/2024 3:00 PM EDT Office Visit [facility] OPTOMETRY [address] [place] [address] JoelJyoti, OD [address] [place] [address] Scheduled Orders Name Type Priority Associated Diagnoses Orde r Schedule HIV-1 RNA, Quantitative, Real-Time PCR Lab Routine On pre-exposure prophylaxis for HIV Expected: 07/04/2024 (Approximate), Expires: 07/04/2025 Syphilis Screen Lab Routine On pre-exposure prophylaxis for HIV Expected: 07/04/2024 (Approximate), Expires: 07/04/2025 documented as of this encounter Procedures Procedure Name Priority Date/Time Associated Diagnosis Comments POCT RAPID HIV SCREENING Routine 07/04/2024 11:31 AM EDT On pre-exposure prophylaxis for HIV documented in this encounter Results * POCT RAPID HIV SCREENING (07/04/2024 11:31 AM EDT) Blood 07/04/2024 11:3 1 AM EDT Narrative Guerita Fall, SANTIAGO - 07/04/2024 11:31 AM EDT negative Lamin Loco MD POINT OF CARE TEST ENTER/EDIT ORDERABLES Final Result documented in this encounter Visit Diagnoses Diagnosis On pre-exposure prophylaxis for HIV documented in this encounter Additional Health Concerns Assessment Noted Time PHQ-9 Depression Total Score: 0 06/25/19 25 2:24 PM EDT documented as of this encounter Care Teams Combo Welder Relationship Specialty Start Date End Date Lee Vines MD [address] [place] [address] PCP - General Internal Medicine 09/05/19 Tamika Snyder DDS [address] [place] [address] Dental Cytotechnologist Supervisor 01/30/24 documented as of this encounter
--- OUTSIDE RECORDS SUMMARY | 2024-07-04 12:05 | XMS_ITS | Encounter Summary ---
Author Organization [employer] Address [address] [place] [address] 7t [place] [address] Care Team Providers Care Pararescue Manager Name Role Phone Lee Vines MD Primary Care Prov ider Tamika Snyder DDS Unavailable [phone] Encounter Details Date Type Department Care Team ([facility] Contact Info) Description 04/10/2022 Orders Only [facility] MEDICINE [address] [place], [place] [phone] Lee Vines MD [address] [place], [place] [phone] On pre-exposure prophylaxis for HIV (Primary Dx) [...] Department Care Team (Late Contact Info) Description 07/23/2024 10:00 AM EDT Office Visit [facility] ADULT DENTAL [address] [place], [place] [phone] Socorro Acuña 09/23/2024 1:15 PM EDT Telemedicine [facility] MED & PEDS [address] [place], [place] [phone] Lee Vines MD [address] [place] [address] 10/03/2024 3:00 PM EDT Office Visit [facility] OPTOMETRY [address] [place], [place] [phone] Joel, Jyoti, OD [address] [place] [address] documented as of this encounter Visit Diagnoses Diagnosis On pre-exposure prophylaxis for HIV- Primary documented in this encounter Care Teams Pararescue Manager Relationship Specialty Start Date End Date Lee Vines MD [address] [place] [address] PCP - General Internal Medicine 09/05/19 Tamika Snyder DDS [address] [place], [place] [phone] Dental Perpetual Inventory Clerk 01/30/24 documented as of this encounter
--- OUTSIDE RECORDS SUMMARY | 2024-07-04 12:05 | XMS_ITS | Encounter Summary ---
Author Organization [employer] Address [address] [place] [address] [address]t [place] [address] Care Team Providers Care Fly Fishing Guide Name Role Phone Lee Vines MD Primary Care Prov ider Tamika Snyder DDS Unavailable [phone] Reason for Visit * Reason Comments Med Refill Encounter Details Date Type Department Care Team ([facility] st Contact Info) Description 12/15/[address] [facility] MED & PEDS [address] [place], [place] [phone] Lee Vines MD [address] [place] [address] Type 2 diabetes mellitus with hyperglycemia, without [...] Description 07/23/2024 10:00 AM EDT Office Visit [facility] ADULT DENTAL [address] [place] [address] Socorro Acuña 09/23/2024 1:15 PM EDT Telemedicine [facility] MED & PEDS [address] [place] [address] Lee Vines MD [address] [place] [address] 10/03/2024 3:00 PM EDT Office Visit [facility] OPTOMETRY [address] [place] [address] Jyoti Maldonado, OD [address] [place] [address] documented as of this encounter Visit Diagnoses Diagnosis Type 2 diabetes mellitus with hyperglycemia, without long-term current use of insulin (CMS/HCC) Alcohol use disorder, severe, dependence (CMS/HCC) documented in this encounter Additional Health Concerns Assessment Noted Time PHQ-9 Depression Total Score: 0 03/21/20 23 9:49 AM EDT documented as of this encounter Care Teams Fly Fishing Guide Relationship Specialty Start Date End Date Lee Vines MD [address] [place] [address] PCP - General Internal Medicine 09/05/19 Tamika Snyder DDS [address] [place] [address] Dental Lottery Clerk 01/30/24 documented as of this encounter
--- OUTSIDE RECORDS SUMMARY | 2024-07-04 12:05 | XMS_ITS | Encounter Summary ---
Author Organization [employer] Address [address] [facility] 7t [place] [address] Care Team Providers Care Tooth Inspector Name Role Phone Lee Vines MD Primary Care Prov ider Tamika Snyder DDS Unavailable [phone] Encounter Details Date Type Department Care Team ([facility] st Contact Info) Description 12/19/2022 Orders Only [facility] CH[facility] MED & PEDS [address] [place], [place] [phone] Lee Vines MD [address] [place] [address] Social History Tobacco Use Types Packs/Day Years [...] Description 07/23/2024 10:00 AM EDT Office Visit [facility] ADULT DENTAL [address] [place], [place] [phone] Socorro Acuña 09/23/2024 1:15 PM EDT Telemedicine [facility] MED & PEDS [address] [place], [place] [phone] Lee Vines MD [address] [place], [place] [phone] 10/03/2024 3:00 PM EDT Office Visit [facility] OPTOMETRY [address] [place] [address] Joel, Jyoti, OD [address] [place] [address] documented as of this encounter Visit Diagnoses Not on filedocumented in this encounter Additional Health Concerns Assessment Noted Time PHQ-9 Depression Total Score: 0 05/17/19 23 9:49 AM EDT documented as of this encounter Care Teams Tooth Inspector Relationship Specialty Start Date End Date Lee Vines MD [address] [place] [address] PCP - General Internal Medicine 09/05/19 Tamika Snyder DDS [address] [place] [address] Dental Shoe Sticks Repairer 01/30/24 documented as of this encounter
--- OUTSIDE RECORDS SUMMARY | 2024-07-04 12:05 | XMS_ITS | Encounter Summary ---
Author Organization [employer] Address [address] [place] [address] [address] [place] [address] Care Team Providers Care Compensation Manager Name Role Phone Lee Vines MD Primary Care Prov ider Tamika Snyder DDS Unavailable [phone] Encounter Details Date Type Department Care Team (Latest Contact Info) Description 04/01/2019 Abstract [facility] CONVERSIONS Dental, Provider, DDS Social History [...] 07/23/2024 10:00 AM EDT Office Visit [facility] AD[facility] [address] [place] [address] Socorro Acuña 09/23/2024 1:15 PM EDT Telemedicine [facility] [address] [place] [address] Lee Vines MD [address] [place] [address] 10/03/2024 3:00 PM EDT Office Visit [facility] OPTOMETRY [address] [place] [address] Jyoti Maldonado, OD [address] [place] [address] documented as of this encounter Visit Diagnoses Not on filedocumented in this encounter Care Teams Compensation Manager Relationship Specialty Start Date End Date Lee Vines MD [address] [place] [address] PCP - General Internal Medicine 09/05/19 Tamika Snyder DDS [address] [place] [address] Dental Labor Relations Representative 01/30/24 documented as of this encounter
--- OUTSIDE RECORDS SUMMARY | 2024-07-04 12:05 | XMS_ITS | Clinical Summary ---
Author Organization [employer] Address [address] [facility] [address] [place] [address] Care Team Providers Care Physician Office Secretary Name Role Phone Lee Vines MD Primary Care Prov ider Tamika Snyder DDS Unavailable [phone] Allergies No known active allergies Medications TRUEplus Lancets 33G miscIndications:T ype 2 diabetes mellitus with hyperglycemia, without long-term current use of insulin (CMS/[facility]) TEST BLOOD SUGAR EVERY DAY 100 each 11 023 Active Alcohol Swabs (SM Alcohol Prep) 70 % padsIndications:T ype 2 diabetes mellitus with hyperglycemia, without long-term current use of insulin (CMS/HCC) USE DIRECTED EVERY DAY 100 each 11 023 Active FREESTYLE LITE test stripIndications: Type 2 diabetes mellitus with hyperglycemia, without long-term current use of insulin (CMS/HCC) TEST BLOOD SUGAR EVERY DAY 100 strip 11 023 Active naltrexone (Depade) 50 MG tabletIndications :Alcohol use disorder, severe, dependence (CMS/HCC) TAKE 1 TABLET BY MOUTH EVERY DAY 30 tablet 1 023 Active lisinopril 30 MG tabletIndications :Primary hypertension Take 1 tablet (30 mg) by mouth Once per day. 90 tablet 3 024 Active cetirizine (ZyrTEC) 10 MG tabletIndications :Seasonal allergies TAKE ONE TABLET DAILY 90 tablet 3 024 Active Cabotegravir ER (Apretude) 600 MG/3ML Suspension Extended ReleaseIndication s:On pre-exposure prophylaxis for HIV Inject 600 mg/3 ML IM Ventrogluteal every 8 weeks 3 mL 5 024 Active Blood Pressure kit 1 kit Once per day. 1 kit 11/13/2 024 Active Blood Glucose Monitoring Suppl (FreeStyle Lite) w/Device kit 1 kit Once per day. 1 kit Active sildenafil (Viagra) 100 MG tabletIndications :Erectile dysfunction due to diseases classified elsewhere TAKE 1 TABLET 1 HOUR BEFORE SEXUAL RELATIONS ONCE DAILY NEEDED. 30 tablet 3 Active atorvastatin (Lipitor) 40 MG tabletIndications :Mixed hyperlipidemia Take 1 tablet (40 mg) by mouth Once per day. 90 tablet 3 Active empagliflozin (Jardiance) 25 MG Take 1 tablet (25 mg) by mouth Once per day. 90 tablet 3 025 2025 Active metFORMIN (Glucophage) 1000 MG tabletIndications :Type 2 diabetes mellitus without complication, without long-term current use of insulin (CMS/[facility]) Take 1 tablet (1,000 mg) by mouth 2 times daily. 180 tablet 3 Active empagliflozin (Jardiance) 25 MG Take 1 tablet (25 mg) by mouth Once per day. 90 tablet 3 024 2024 Discontinued(R eorder (will not trigger notification to Pharmacy)) metFORMIN (Glucophage) 1000 MG tabletIndications :Type 2 diabetes mellitus without complication, without long-term current use of insulin (CMS/[facility]) Take 1 tablet (1,000 mg) by mouth 2 times daily. 180 tablet 3 024 2024 Discontinued(R eorder (will not trigger notification to Pharmacy)) atorvastatin (Lipitor) 40 MG tabletIndications :Mixed hyperlipidemia Take 1 tablet (40 mg) by mouth Once per day. 90 tablet 3 024 2024 Discontinued(R eorder (will not trigger notification to Pharmacy)) Active Problems Problem Noted Date Diagnosed Date Type 2 diabetes mellitus without complication Assessment & Plan (06/24/2024 3:15 PM EDT): No reported episode of hypoglycemia, will continue same treatment, new labs ordered, continue low carb/no sugar diet Vitamin D deficiency 01/09/2024 Essential hypertension 01/09/2024 [...] urologist Primary hypertension 04/04/2022 Assessment & Plan (06/24/2024 3:14 PM EDT): Controlled, continue current treatment, keep low sodium diet, exercise as tolerated, keep bp log, target <130/80, follow up in 3 months Assessment & Plan (10/08/2023 9:55 AM EDT): [...] Encounters Date Type Department Care Team Description 07/04/2024 11:00 AM EDT Clinical Support [address] [address] Guerita Fall, RN On pre-exposure prophylaxis for HIV 07/04/2024 Travel 06/24/2024 2:30 PM EDT Telemedicine [facility] [address] [place] [address] Lee Vines MD Primary hypertension (Primary Dx); Mixed hyperlipidemia; Type 2 diabetes mellitus without complication, without long-term current use of insulin ([facility]) 06/24/2024 Travel 06/02/2024 Travel 05/27/2024 Refill [facility] [address] [place] [address] Lee Vines MD Erectile dysfunction due to diseases classified elsewhere 05/21/2024 Telephone [facility] [address] [place] [address] Lee Vines MD 05/21/2024 Travel 05/08/2024 Travel 05/07/2024 Telephone [facility] [address] [place] [address] Lee Vines MD chart prep 05/06/2024 Orders Only [facility] [address] [place] [phone] Gemrania Santo, SANTIAGO 05/02/2024 11:00 AM EST Clinical Support [address] [address] Marj Doherty, RN On pre-exposure prophylaxis for HIV (Primary Dx); Encounter for immunization 05/02/2024 Orders Only [facility] [address] [place] [address] Lee Vines MD 05/02/2024 Travel from Last 3 Months Immunizations Name Administration [...] Sign Reading Time Taken Comments Blood Pressure 110/79 06/24/2024 2:40 PM EDT Pulse 65 01/22/2024 11:12 AM EST Temperature [...] Description 07/23/2024 10:00 AM EDT Office Visit [facility] [address] [place] [address] Socorro Acuña 09/23/2024 1:15 PM EDT Telemedicine [facility] [address] [place] [address] UngerLee Bowie MD [address] [place] [address] 10/03/2024 3:00 PM EDT Office Visit [facility] [address] [place] [address] Joel, Jyoti, OD [address] [place] [address] Health Maintenance Due Date Last Done Comments CT Colonography 1976 FIT DNA/Cologuard 1976 FIT 1976 FOBT 1976 Sigmoidoscopy 1976 Family Planning (PISQ) 02/15/1991 COVID-19 Vaccine ( season) 2023 02/28/2021, 07/15/2020, 06/17/2020 Diabetes: Urine Protein Screening 01/13/2024 01/12/2023, 02/21/2021, 04/04/2019 Dental Oral Exam 01/20/2024 07/19/2023, , 06/09/2022 Diabetes: Hemoglobin A1C 05/07/2024 024, 07/19/2023, 01/12/2023, Additional history exists Diabetes: Foot Exam 07/02/2024 07/03/2023, 07/03/2023, 07/03/2023, Additional history exists Dental X-Ray: Bitewings 07/19/2024 07/19/2023, 06/09 Dental Prophylaxis 07/22/2024 01/22/2024, 0 07/19/2023, 12/19/2022, Additional history exists Lipid Panel 01/21/2025 01/22/2024, 06/27, 03/29/2023, Additional history exists Tobacco Screening 01/21/2025 01/22/2024 Dental X-Ray: Full Mouth 06/10/2025 06/09/2022 Alcohol/Substance Use Screening 06/24/2025 06/24/2024 Depression Screening 06/24/2025 06/24/2024, 06/25/19 25 SDOH Screening 06/24/2025 06/24/2024 Eye Exam 08/27/2025 08/28/2023, 0703/2023, 08/28/2023, Additional history exists Zoster Vaccines (1 of 2) 02/15/2026 Colonoscopy 08/29/2027 Colorectal Cancer Screening 08/29/2027 DTaP/Tdap/Td Vaccines (3 - Td or Tdap) 04/01/2029 04/01/2019, 07/21/2017 RSV Patients and Patients Aged 60 years or older (1 - 1-dose 75+ series) 02/15/2051 Influenza Vaccine Completed 11/08/2023, , 12/12/2021, Additional history exists Pneumococcal Vaccine: Pediatrics (0 to 5 Years) and At-Risk Patients (6 to 49) Years) Completed 01/09/2024, 08/15/2016 HIV Screening Completed 05/02/2024, 02/26, 01/04/2024, Additional history exists Hepatitis B Vaccines Completed 05/02/2024, 06/10/2019, 04/29/2019 Hepatitis C Screening Completed 05/02/2024 , 09/13/2023, 05/24/2023, Additional history exists HIB Vaccines Aged Out No longer eligi [...] AM EDT On pre-exposure prophylaxis for HIV HIV 1 RNA, QUANTITATIVE REAL TIME PCR Routine 05/02/2024 11:54 AM EST HEPATITIS C AB W/REFL TO HCV RNA, QN, PCR Routine 05/02/2024 11:54 AM EST SYPHILIS SCREEN Routine 05/02/2024 11:54 AM EST POCT RAPID HIV SCREENING Routine 05/02/2024 11:37 AM EST On pre-exposure prophylaxis for HIV CHLAMYDIA/GONORRHEA - URINE ([place] [facility]) Routine 05/02/2024 CHLAMYDIA/GONORRHEA THROAT SWAB ([place] [facility]) Routine 05/02/2024 LIPID PANEL, STANDARD Routine 01/22/2024 1:08 PM EST Type 2 diabetes mellitus without complication, without long-term current use of insulin ([facility]) PROPHYLAXIS - ADULT Routine 01/22/2024 1 1:00 AM EST HEMOGLOBIN A1C Routine 11/08/2023 11:20 AM EDT Type 2 diabetes mellitus without complication, without long-term current use of insulin ([facility]) BITEWINGS - 4 RADIOGRAPHIC IMAGES Routine 07/19/2023 9:00 AM EDT PERIODIC ORAL EVALUATION - ESTABLISHED PATIENT Routine 07/19/2023 9:00 AM EDT ALBUMIN, RANDOM URINE W/CREATININE Routine 01/12/2023 11:40 AM EST INTRAORAL - COMPLETE SERIES OF RADIOGRAPHIC IMAGES Routine 06/09/2022 9:00 AM EDT from Last 3 Months or Most Recently Relevant to Health Maintenance Results * POCT RAPID HIV SCREENING (07/04/2024 11:31 AM EDT) Only the most recent of2 resultswithin the time period is included. Blood 07/04/2024 11:3 1 AM EDT Narrative Guerita Fall RN - 07/04/2024 11:31 AM EDT negative Lamin Loco MD POINT OF CARE TEST ENTER/EDIT ORDERABLES Final Result * Syphilis Screen (05/02/2024 11:54 AM EST) Syphilis Screen Nonreactive Nonreactive [facility] 05/02/2024 11:5 4 AM EST 05/02/2024 1:12 PM EST Lee Bautista MD LAB BLOOD ORDERABL ES Final Result Performing Organization Address [facility]/State/ZIP Co de Phone Number [facility] [address] [place] [address] [phone] * Hepatitis C Antibody with Reflex to HCV, RNA, Quantitative, Real-Time PCR (05/02/2024 11:54 AM EST) Hepatitis C Antibody Nonreactive Nonreactive [facility] Comment:Antibodies to HCV no t detected; does not exclude early acuteHCV infection. 05/02/2024 11:5 4 AM EST 05/02/2024 1:12 PM EST Lee Bautista MD LAB BLOOD ORDERABL ES Final Result Performing Organization Address [facility]/ZIP Co de Phone Number [facility] [address] [place] [phone] * HIV-1 RNA, Quantitative, Real-Time PCR (05/02/2024 11:54 AM EST) HIV RNA PCR Qn Copies NOT DETECTED NOT DETECTED copies/mL [facility] HIV RNA PCR Qn Log Copies NOT DETECTED NOT DETECTED [facility] Comment:Result Units: Log co pies/mLThis test was performed using Real-Time Polymerase ChainReaction.Reportable Range: 20 copies/mL to 10,000,000 copies/mL(1.30 log copies/mL to 7.00 log copies/mL).THIS TEST WAS PERFORMED AT:[address] [place] [id number] MASON MD 05/02/2024 11:5 4 AM EST 05/02/2024 1:12 PM EST Lee Bautista MD LAB BLOOD ORDERABL ES Final Result Performing Organization Address [facility] Co de Phone Number [facility] [address] [place] [phone] * Chlamydia/Gonorrhea Throat Swab ([place] [facility]) (05/02/2024) Chlamydia Throat Swab Negative Gonorrhea Throat Swab Negative Swab 05/02/2024 Historical Provider LAB MICROBIOLOGY - GENERA L ORDERABLES Final Result * Chlamydia/Gonorrhea, Urine ([place] [facility]) (05/02/2024) Chlamydia, Urine Negative Negative, Indeterminate, None Detected, Invalid, Specimen unsatisfactory for evaluation, Weakly Positive Gonorrhea, Urine Negative Negative, Indeterminate, None Detected, Invalid, Specimen unsatisfactory for evaluation, Weakly Positive Urine 05/02/2024 Historical Provider LAB URINE ORDERABLES Sharifa l Result * (ABNORMAL) Lipid Panel, Standard (01/22/2024 1:08 PM EST) Triglycerides 120 <150 mg/dL [facility] Comment:Desirable Triglyceri de: less than 150 mg/dLBorderline High Triglyceride 150-199 mg/dLHigh Triglyceride: 200-499 mg/dLVery High Triglyceride: greater than or equal to 5OO mg/dL Cholesterol 139 <200 mg/dL [facility] Comment:Desirable Cholestero l: less than 200 mg/dLBorderline High Cholesterol: 200-239 mg/dLHigh Cholesterol: greater than 239 mg/dL LDL Cholesterol Calculated 83 <100 mg/dL [facility] Comment:Desirable LDL: less than 100 mg/dLNear Optimal/Above Optimal LDL: 110- 129 mg/dLBorderline High LDL: 130-159 mg/dLHigh LDL: 160-189 mg/dLVery High LDL: greater than or equal to 190 mg/dL HDL Cholesterol 32(L) >40 mg/dL [facility] Comment:Desirable HDL: great er than 40 mg/dL Note: This HDL assay may give artificially low results in patients with liver disease. Blood Venous blood specimen / Unknown 01/22/2024 1:08 PM EST 01/22/2024 2:29 PM EST Lee Bautista MD LAB BLOOD ORDERABL ES Final Result [facility] [address] [place] [phone] * (ABNORMAL) Hemoglobin A1c (11/08/2023 11:20 AM EDT) Hemoglobin A1c 6.3(H) <6.0 % [facility] Comment:Hemoglobin A1C Refer ence Range Adults: 4.8 - 6.0 % Non diabetic: < 6.0 % Goal: < 7.0 %Additional Action Suggested: > 8.0 %Note: Hemoglobin A1c results are invalid for patients with abnormal amounts of HbF. Blood transfusions may impact the HbA1c concentration in the patient sample. Estimated Average Glucose 134 mg/dL [facility] Comment:eAG = Estimated ave rage glucose which is %A1C expressed asaverage glucose, using the formula of the [id number] Glucose study (ADAG), Diabetes Care, Vol.31,#8,Sep. 2007 Blood Venous blood specimen / Unknown 11/08/2023 11:20 AM EDT 11/08/2023 1:24 PM EDT Lee Bautista MD LAB BLOOD ORDERABL ES Final Result Performing Organization Address [facility] Co de Phone Number [facility] [address] [place] [phone] * Albumin, Random Urine W/Creatinine (01/12/2023 11:40 AM EST) Creatinine, Urine 24.81 mg/dL [facility] Microalbumin Urine <5.0 mg/L [facility] Microalbum Creatinine Ratio Ur TNP <30 ug/mg cr [facility] Comment:Unable to calculate albumin/creatinine ratio due to lowmicroalbumin or creatinine result. 01/12/2023 11:4 0 AM EST 01/12/2023 2:31 PM EST Lee Bautista MD LAB URINE ORDERABL ES Final Result Performing Organization Address [facility] de Phone Number [facility] [address] [place] [phone] from Last 3 Months or Most Recently Relevant to Health Maintenance Insurance [employer] [facility] ADULT DENTAL - HSN FULL (MEDICAID) Care Teams Physician Office Secretary Relationship Specialty Start Date End Date Lee Vines MD [address] [place] [address] PCP - General Internal Medicine 09/05/19 Tamika Snyder DDS [address] [place] [address] Dental Hand Spring Repairer 01/30/24
[2024-07-04 13:11] LABS: MANUAL DIFF FLAG NO
[2024-07-04 13:25] LABS: Basophils Percent Auto 0.8 % (0-2); Eosinophils Absolute Auto 0.1 X10*3/uL (0.0-0.4); Eosinophils Percent Auto 3.6 % (0-4); Hematocrit 46.5 % (42.0-52.0); Hemoglobin 16.6 g/dl (14.0-18.0); Imm Gran Abs Auto 0.01 X10*3/uL (0.00-0.03); Imm Gran Pct Auto 0.3 % (0.0-0.4); Lymphocytes Absolute Auto 1.6 X10*3/uL (1.2-4.9); Mean Corpuscular HGB Conc 35.7 g/dl (31.0-36.0); Mean Corpuscular Hemoglobin 31.6 pg (27.0-33.0); Mean Corpuscular Volume 88.6 fL (80.0-98.0); Monocytes Absolute Auto 0.3 X10*3/uL (0.1-1.2); Monocytes Percent Auto 7.3 % (2-11); Neutrophils Absolute Auto 1.8 x10*3/uL (2.0-8.3); Platelet Count 229 X10*3/uL (160-400); Red Blood Count 5.25 X10*6/uL (4.60-5.80); Red Cell Distribution Width 12.9 % (11.0-16.0); White Blood Count 3.9 X10*3/uL (4.8-10.8)
[2024-07-04 14:14] LABS: Alanine Aminotransferase 35 U/L (0-40); Albumin Level 4.5 g/dL (3.5-5.0); Alkaline Phosphatase 98 U/L (39-117); Anion Gap 11 (12-20); Aspartate Amino Transferase 20 U/L (5-37); Bilirubin Total 0.5 mg/dL (0.0-1.0); Blood Urea Nitrogen 21 mg/dL (9-16); Calcium 9.6 mg/dL (8.4-10.2); Carbon Dioxide 27 mmol/L (22-29); Chloride 102 mmol/L (96-108); Cholesterol 157 mg/dL (<200); Estimated Glomerular Filt Rate > 60; Glucose Random 106 mg/dL (60-115); HDL Cholesterol 38 mg/dL (>40); LDL Cholesterol Calculated 103 mg/dL (<100); Potassium 4.8 mmol/L (3.3-5.1); Sodium 135 mmol/L (135-145); Total Protein 7.6 g/dL (6.5-8.0); Triglycerides 82 mg/dL (<150)
[2024-07-04 14:32] LABS: Creatinine Urine 49.45 mg/dL; Microalbum/Creatinine Ratio Ur 10.1 ug/mg cr (<30)
[2024-07-04 14:37] LABS: Estimated Average Glucose 131 mg/dL; Hemoglobin A1C 185.2431 umol/L; Hemoglobin A1c % 6.2 % (<6.0); Total Hemoglobin (HGBA1C) 4205.6886 umol/L
[2024-07-05 03:51] LABS: Syphilis Screen Nonreactive (Nonreactive)
[2024-07-07 20:59] LABS: HIV RNA PCR Qn Copies NOT DETECTED copies/mL (NOT DETECTED); HIV RNA PCR Qn Log Copies NOT DETECTED (NOT DETECTED)
== END 2024-07-04 11:38 | disposition home or self-care (01) ==
LOC: HO.HHCL 11:37
PROVIDERS: Visit Provider Internal Medicine
DX: E11.9 Type 2 diabetes mellitus without complications (principal); Z79.899 Other long term (current) drug therapy
CPT/HCPCS: 36415; 80053; 80061; 82043; 82570; 83036; 85025; 86780; 87536

== ENCOUNTER 2024-09-05 11:03 | Outpatient (REF) | payer MEDICAID, OTHER, SELFPAY ==
--- OUTSIDE RECORDS SUMMARY | 2024-09-05 11:41 | XMS_ITS | Clinical Summary ---
Author Organization [facility] Address [address] [place] [address] Care Team Providers Care [employer] Name Role Phone Haydee Frazier MD Primary Care Provider [phone] Family History Relation Name Status Comments Father [...] 2023-2 5 season) 2023 Influenza Vaccine (#1) 2024 HIB Vaccines Aged Out No longer [...] 5 Years) and At-Risk Patients (6 to 49 Years) Aged Out No longer eligible b ased on patient's age to complete this topic RSV Immunization Patients Un angelita 20 months Aged Out No longer eligible b ased on patient's age to complete this topic Varicella Vaccines Aged Out No longer eligible based on patient's age to complete this topic Care Teams [employer] Relationship Specialty Start Date End Date Haydee Frazier MD [address] [place] [address] PCP - General 04/20/05
--- OUTSIDE RECORDS SUMMARY | 2024-09-05 11:41 | XMS_ITS | Clinical Summary ---
Author Organization [employer] Address [address] [facility] [address] [place] [address] Care Team Providers Care Block Press Operator Name Role Phone Lee Vines MD Primary Care Prov ider Tamika Snyder DDS Unavailable [phone] Allergies No known active allergies Medications TRUEplus [...] DAILY 90 tablet 3 12/26/19 24 Active Cabotegravir ER [...] per day. 1 kit 03/03/19 25 Active sildenafil (Viagra) 100 MG tabletIndications: Erectile dysfunction due to diseases classified elsewhere TAKE 1 TABLET 1 HOUR BEFORE SEXUAL RELATIONS ONCE DAILY NEEDED. 30 tablet 3 05/29/19 25 Active atorvastatin (Lipitor) 40 MG tabletIndications: Mixed hyperlipidemia Take 1 tablet (40 mg) by mouth Once per day. 90 tablet 3 06/25/19 25 Active empagliflozin (Jardiance) 25 MG Take 1 tablet (25 mg) by mouth Once per day. 90 tablet 3 06/25/19 25 026 Active metFORMIN (Glucophage) 1000 MG tabletIndications: Type 2 diabetes mellitus without complication, without long-term current use of insulin ([facility]) Take 1 tablet (1,000 mg) by mouth 2 times daily. 180 tablet 3 06/25/19 25 Active ibuprofen 600 MG tablet Take 1 tablet (600 mg) by mouth every 6 (six) hours if needed for mild pain for up to 20 doses. 20 tablet 08/26/19 25 Active amoxicillin (Amoxil) 500 MG capsule Take 1 capsule (500 mg) by mouth every 8 (eight) hours for 7 days. 21 capsule 08/26/19 25 025 Hospital, Clinic, or Other Facility Administered Medication Ordered Dose Route Frequency Start Date End Date Status Cabotegravir ER Suspension Extended Release 600 mgIndications:On pre-exposure prophylaxis for HIV 600 mg IM Every 8 weeks 09/06/2024 Active Active Problems Problem Noted Date Diagnosed Date Type 2 diabetes mellitus without complication Assessment & Plan (06/24/2024 3:15 PM EDT): No reported episode of hypoglycemia, will continue same treatment, new labs ordered, continue low carb/no sugar diet Essential hypertension 01/09/2024 Assessment & Plan (01/09/2024 [...] On statin therapy, reinforced importance of diet Resolved Problems Problem Noted Date Diagnosed Date Resolved Date Vitamin D deficiency 01/09/2024 025 Encounters Date Type Department Care Team Description 09/05/2024 11:00 AM EDT Clinical Support [facility] [address] [place] [phone] Angelia Thakkar, SNATIAGO On pre-exposure prophylaxis for HIV 09/05/2024 Travel 08/25/2024 1:00 PM EDT Office Visit [facility] [address] [facility] [place] [address] Manuelito Brown 08/25/2024 Orders Only [facility] [address] [place] [address] Jewels Stephens MD 08/05/2024 10:00 AM EDT Office Visit [facility] ADULT DENTAL [address] [place] [address] Manuelito Brown 07/23/2024 10:00 AM EDT Office Visit [facility] ADULT DENT[facility] [address] [place] [address] Socorro Acuña 07/04/2024 11:00 AM EDT Clinical Support [facility] [address] [place] [address] Guerita Fall, SANTIAGO On pre-exposure prophylaxis for HIV 07/04/2024 Orders Only [facility] [address] [place] [address] Lee Vines MD 07/04/2024 Travel 06/24/2024 2:30 PM EDT Telemedicine [facility] [address] [place] [address] Lee Vines MD Primary hypertension (Primary Dx); Mixed hyperlipidemia; Type 2 diabetes mellitus without complication, without long-term current use of insulin ([facility]) 06/24/2024 Travel from Last 3 Months Immunizations Immunization Administration Dates Next Due Hep B, adult [...] Types Packs/Day Years Used Date Smoking Tobacco: Every Day Cigarettes Passive Smoke Exposure: Past Smokeless Tobacco: Never Tobacco Cessation:Ready to Q uit: Not Asked; Counseling Given: Not Answered Comments:vapes Alcohol Use Standard Drinks/Week Comments Yes [...] Sign Reading Time Taken Comments Blood Pressure 110/60 08/25/2024 1:00 PM EDT Pulse 65 01/22/2024 11:12 AM EST Temperature 36.3 C (97.3 F) 01/09/2024 4:06 PM EST Respiratory Rate 12 01/09/2024 4:06 PM EST Oxygen Saturation 98% 01/09/2024 4:06 PM EST Inhaled Oxygen Concentration - - Weight 86 kg (189 lb 9.6 oz) 01/09/2024 4:06 PM EST Height 165.1 cm (5' 5 ) 01/09/2024 4:06 PM EST Body Mass Index 31.55 01/09/2024 4:06 PM EST Plan of Treatment Upcoming Encounters Date Type Department Care Team (Late st Contact Info) Description 09/23/2024 1:15 PM EDT Telemedicine [facility] [address] [place] [address] Lee Vines MD [address] [place] [address] 09/23/2024 2:00 PM EDT Office Visit [facility] ADULT DENTAL [address] [place] [address] Manuelito Brown [address] [place] [address] 10/03/2024 3:00 PM EDT Office Visit [facility] [address] [place] [address] JoelJyoti burnette, OD [address] [place] [address] 11/07/2024 11:00 AM EDT Clinical Support [facility] [address] [place] [address] Guerita Fall, RN [address] [place] [address] 01/29/2025 10:00 AM EST Office Visit [facility] ADULT DENTAL [address] [place] [address] Socorro Acuña Health Maintenance Due Date Last Done Comments CT Colonography 1976 FIT DNA/Cologuard 1976 FIT 1976 FOBT 1976 Sigmoidoscopy 1976 Disability Screening 1976 Family Planning (PISQ) 02/15/1991 COVID-19 Vaccine ( season) 2023 02/28/2021, 07/15/2020, 06/17/2020 Diabetes: Foot Exam 07/02/2024 07/03/2023, 07/03/2023, 07/03/2023, Additional history exists Influenza Vaccine (#1) 2024 , 12/19/2022, 12/12/2021, Additional history exists Diabetes: Hemoglobin A1C 01/04/2025 025, 11/08/2023, 07/19/2023, Additional history exists Dental Oral Exam 01/24/2025 07/23/2024, , 12/19/2022, Additional history exists Dental Prophylaxis 01/24/2025 07/23/2024, 1 03/23/2023, 07/19/2023, Additional history exists Dental X-Ray: Full Mouth 06/10/2025 06/09/2022 Alcohol/Substance Use Screening 06/24/2025 06/24/2024 Depression Screening 06/24/2025 06/24/2024, 06/25/19 25 SDOH Screening 06/24/2025 06/24/2024 Diabetes: Urine Protein Screening 07/04/2025 07/04/2024, 01/12/2023, 02/21/2021, Additional history exists Lipid Panel 07/04/2025 07/04/2024, 12/28, 07/19/2023, Additional history exists Dental X-Ray: Bitewings 07/24/2025 07/24/19 25, 07/19/2023, 06/09/2022 Tobacco Screening 08/25/2025 08/25/2024 Eye Exam 08/27/2025 08/28/2023, 07/0 03/2023, 08/28/2023, Additional history exists Zoster Vaccines (1 of 2) 02/15/2026 Colonoscopy 09/12/2027 09/11/2022 Colorectal Cancer Screening 09/12/2027 DTaP/Tdap/Td Vaccines (3 - Td or Tdap) 04/01/2029 04/01/2019, 07/21/2017 RSV Patients and Patients Aged 60 years or older (1 - 1-dose 75+ series) 02/15/2051 Pneumococcal Vaccine: Pediatrics (0 to 5 Years) and At-Risk Patients (6 to 49) Years Completed 01/09/2024, 08/15/2016 Hepatitis B Vaccines Completed 05/02/2024, 06/10/2019, 04/29/2019 Hepatitis C Screening Completed 05/02/2024 , 09/13/2023, 05/24/2023, Additional history exists HIV Screening Completed 07/04/2024, 08/2024, 03/07/2024, Additional history exists HIB Vaccines Aged Out [...] Procedure Name Priority Date/Time Associated Diagnosis Comments 8 ENDODONTIC THERAPY, ANTERIOR TOOTH Routine 08/25/2024 1:00 PM EDT 19 O RESIN-BASED COMPOSITE - 1 SURF, POSTERIOR Routine 08/05/2024 10:00 AM EDT COMPREHENSIVE PERIODONTAL EVALUATION - NEW OR ESTABLISHED PATIENT Routine 07/23/2024 10:00 AM EDT PERIODIC ORAL EVALUATION - ESTABLISHED PATIENT Routine 07/23/2024 10:00 AM EDT INTRAORAL - PERIAPICAL EACH ADDITIONAL RADIOGRAPHIC IMAGE Routine 07/23/2024 10:00 AM EDT INTRAORAL - PERIAPICAL FIRST RADIOGRAPHIC IMAGE Routine 07/23/2024 10:00 AM EDT BITEWINGS - 4 RADIOGRAPHIC IMAGES Routine 07/23/2024 10:00 AM EDT ORAL HYGIENE INSTRUCTIONS Routine 07/23/2024 10:00 AM EDT CASE PRESENTATION, DETAILED AND EXTENSIVE TREATMENT PLANNING Routine 07/23/2024 10:00 AM EDT PROPHYLAXIS - ADULT Routine 07/23/2024 1 0:00 AM EDT HIV 1 RNA, QUANTITATIVE REAL TIME PCR Routine 07/04/2024 11:40 AM EDT SYPHILIS SCREEN Routine 07/04/2024 11:40 AM EDT LIPID PANEL, STANDARD Routine 07/04/2024 11:40 AM EDT Type 2 diabetes mellitus without complication, without long-term current use of insulin (CMS/HCC) ALBUMIN, RANDOM URINE W/CREATININE Routine 07/04/2024 11:40 AM EDT Type 2 diabetes mellitus without complication, without long-term current use of insulin (CMS/HCC) HEMOGLOBIN A1C Routine 07/04/2024 11:40 AM EDT Type 2 diabetes mellitus without complication, without long-term current use of insulin (CMS/HCC) COMPREHENSIVE METABOLIC PANEL Routine 07/04/2024 11:40 AM EDT Type 2 diabetes mellitus without complication, without long-term current use of insulin (CMS/HCC) CBC WITH AUTO DIFFERENTIAL Routine 07/04/2024 11:40 AM EDT Type 2 diabetes mellitus without complication, without long-term current use of insulin (CMS/HCC) POCT RAPID HIV SCREENING Routine 07/04/2024 11:31 AM EDT On pre-exposure prophylaxis for HIV HEPATITIS C AB W/REFL TO HCV RNA, QN, PCR Routine 05/02/2024 11:54 AM EST HM COLONOSCOPY Routine 09/11/2022 2:42 PM EDT INTRAORAL - COMPLETE SERIES OF RADIOGRAPHIC IMAGES Routine 06/09/2022 9:00 AM EDT from Last 3 Months or Most Recently Relevant to Health Maintenance Results * Syphilis Screen (07/04/2024 11:40 AM EDT) Syphilis Screen Nonreactive Nonreactive [facility] 07/04/2024 11:4 0 AM EDT 07/04/2024 1:12 PM EDT us Lee Bautista MD LAB BLOOD ORDERABL ES Final Result Performing Organization Address [facility] Co de Phone Number [facility] [address] [place] [phone] * Albumin, Random Urine W/Creatinine (07/04/2024 11:40 AM EDT) Creatinine, Urine 49.45 mg/dL [facility] Microalbumin Urine 5.0 mg/L [facility] Microalbum Creatinine Ratio Ur 10.1 <30 ug/mg cr [facility] Comment:Albumin/Creatinine R atio Reference Ranges: Normal: < 30 ug/mg creatinine Microalbuminuria: 30 - 300 ug/mg creatinineClinical Albuminuria: > 300 ug/mg creatinine Urine (Urine, Random) 07/04/2024 11:40 AM EDT 07/04/2024 1:04 PM EDT us Lee Bautista MD LAB URINE ORDERABL ES Final Result Performing Organization Address [facility] Co de Phone Number [facility] [address] [place] [phone] * (ABNORMAL) CBC auto differential (07/04/2024 11:40 AM EDT) White Blood Count 3.9(L) 4.8 - 10.8 X10*3/uL [facility] Red Blood Count 5.25 4.60 - 5.80 X10*6/uL [facility] Hemoglobin 16.6 14.0 - 18.0 g/dl [facility] Hematocrit 46.5 42.0 - 52.0 % [facility] Mean Corpuscular Volume 88.6 80.0 - 98.0 fL [facility] Mean Corpuscular Hemoglobin 31.6 27.0 - 33.0 pg [facility] Mean Corpuscular HGB Conc 35.7 31.0 - 36.0 g/dl [facility] Red Cell Distribution Width 12.9 11.0 - 16.0 % [facility] Platelet Count 229 160 - 400 X10*3/uL [facility] Mean Platelet Volume 10.0 9.4 - 12.4 fL [facility] Neutrophils Percent Auto 47.0 45 - 73 % [facility] Imm Gran Pct Auto 0.3 0.0 - 0.4 % [facility] Lymphocytes Percent Auto 41.0(H) 20 - 40 % [facility] Monocytes Percent Auto 7.3 2 - 11 % [facility] Eosinophils Percent Auto 3.6 0 - 4 % [facility] Basophils Percent Auto 0.8 0 - 2 % [facility] NRBC Pct Auto 0.0 0.0 - 0.2 /100WBC [facility] Neutrophils Absolute Auto 1.8(L) 2.0 - 8.3 x10*3/uL [facility] Imm Gran Abs Auto 0.01 0.00 - 0.03 X10*3/uL [facility] Lymphocytes Absolute Auto 1.6 1.2 - 4.9 X10*3/uL [facility] Monocytes Absolute Auto 0.3 0.1 - 1.2 X10*3/uL [facility] Eosinophils Absolute Auto 0.1 0.0 - 0.4 X10*3/uL [facility] Basophils Absolute Auto 0.0 0.0 - 0.2 X10*3/uL [facility] NRBC Abs Auto 0.000 0.0 - 0.012 X10*3/uL [facility] Blood Venous blood specimen / Unknown 07/04/2024 11:40 AM EDT 07/04/2024 1:07 PM EDT us Lee Bautista MD LAB BLOOD ORDERABL ES Final Result [facility] [address] [place] [address] [phone] * HIV-1 RNA, Quantitative, Real-Time PCR (07/04/2024 11:40 AM EDT) HIV RNA PCR Qn Copies NOT DETECTED NOT DETECTED copies/mL [facility] HIV RNA PCR Qn Log Copies NOT DETECTED NOT DETECTED [facility] Comment:Result Units: Log co pies/mLThis test was performed using Real-Time Polymerase ChainReaction.Reportable Range: 20 copies/mL to 10,000,000 copies/mL(1.30 log copies/mL to 7.00 log copies/mL).THIS TEST WAS PERFORMED AT:[facility] [place] [phone] MASON MD 07/04/2024 11:4 0 AM EDT 07/04/2024 1:12 PM EDT Lee Bautista MD LAB BLOOD ORDERABL ES Final Result Performing Organization Address City/[facility]/ZIP Co de Phone Number [facility] [address] [place] [address] [phone] * (ABNORMAL) Hemoglobin A1c (07/04/2024 11:40 AM EDT) Hemoglobin A1c 6.2(H) <6.0 % [facility] Comment:Hemoglobin A1C Refer ence Range Adults: 4.8 - 6.0 % Non diabetic: < 6.0 % Goal: < 7.0 %Additional Action Suggested: > 8.0 %Note: Hemoglobin A1c results are invalid for patients with abnormal amounts of HbF. Blood transfusions may impact the HbA1c concentration in the patient sample. Estimated Average Glucose 131 mg/dL [facility] Comment:eAG = Estimated ave rage glucose which is %A1C expressed asaverage glucose, using the formula of the T1E-FvjphxcEcdgyki Glucose study (ADAG), Diabetes Care, Vol.31,#8,Sep. 2007 Blood Venous blood specimen / Unknown 07/04/2024 11:40 AM EDT 07/04/2024 1:07 PM EDT Lee Bautista MD LAB BLOOD ORDERABL ES Final Result [facility] [address] [place] [phone] * (ABNORMAL) Lipid Panel, Standard (07/04/2024 11:40 AM EDT) Triglycerides 82 <150 mg/dL [facility] Comment:Desirable Triglyceri de: less than 150 mg/dLBorderline High Triglyceride 150-199 mg/dLHigh Triglyceride: 200-499 mg/dLVery High Triglyceride: greater than or equal to 5OO mg/dL Cholesterol 157 <200 mg/dL [facility] Comment:Desirable Cholestero l: less than 200 mg/dLBorderline High Cholesterol: 200-239 mg/dLHigh Cholesterol: greater than 239 mg/dL LDL Cholesterol Calculated 103(H) <100 mg/dL [facility] Comment:Desirable LDL: less than 100 mg/dLNear Optimal/Above Optimal LDL: 110- 129 mg/dLBorderline High LDL: 130-159 mg/dLHigh LDL: 160-189 mg/dLVery High LDL: greater than or equal to 190 mg/dL HDL Cholesterol 38(L) >40 mg/dL [facility] Comment:Desirable HDL: great er than 40 mg/dL Note: This HDL assay may give artificially low results in patients with liver disease. Blood Venous blood specimen / Unknown 07/04/2024 11:40 AM EDT 07/04/2024 1:12 PM EDT Lee Bautista MD LAB BLOOD ORDERABL ES Final Result Performing Organization Address City/[facility]/ZIP Co de Phone Number [facility] [address] [place] [address] [phone] * (ABNORMAL) Comprehensive Metabolic Panel (07/04/2024 11:40 AM EDT) Sodium 135 135 - 145 mmol/L [facility] Potassium 4.8 3.3 - 5.1 mmol/L [facility] Chloride 102 96 - 108 mmol/L [facility] Carbon Dioxide 27 22 - 29 mmol/L [facility] Anion Gap 11(L) 12 - 20 [facility] Urea Nitrogen (BUN) 21(H) 9 - 16 mg/dL [facility] Creatinine, Serum 0.89 0.5 - 1.4 mg/dL [facility] Estimated Glomerular Filt Rate >60 [facility] Comment:Chronic Kidney Disea se: Estimated GFR < 60 mL/min/1.62x8Fcoupd Kidney Disease: Estimated GFR < 15 mL/min/1.73m2 Glucose 106 60 - 115 mg/dL [facility] Calcium 9.6 8.4 - 10.2 mg/dL [facility] Bilirubin, Total 0.5 0.0 - 1.0 mg/dL [facility] Aspartate Amino Transferase 20 5 - 37 U/L [facility] Alanine Aminotransferase 35 0 - 40 U/L [facility] Total Protein 7.6 6.5 - 8.0 g/dL [facility] Albumin Level 4.5 3.5 - 5.0 g/dL [facility] Alkaline Phosphatase 98 39 - 117 U/L [facility] Blood Venous blood specimen / Unknown 07/04/2024 11:40 AM EDT 07/04/2024 1:12 PM EDT us Lee Bautista MD LAB BLOOD ORDERABL ES Final Result [facility] [address] [place] [phone] * POCT RAPID HIV SCREENING (07/04/2024 11:31 AM EDT) Blood 07/04/2024 11:3 1 AM EDT Narrative Guerita Fall, SANTIAGO - 07/04/2024 11:31 AM EDT negative us Lamin Loco MD POINT OF CARE TEST ENTER/EDIT ORDERABLES Final Result * Hepatitis C Antibody with Reflex to HCV, RNA, Quantitative, Real-Time PCR (05/02/2024 11:54 AM EST) Hepatitis C Antibody Nonreactive Nonreactive [facility] Comment:Antibodies to HCV no t detected; does not exclude early acuteHCV infection. 05/02/2024 11:5 4 AM EST 05/02/2024 1:12 PM EST Lee Bautista MD LAB BLOOD ORDERABL ES Final Result [facility] [address] [place] [address] [phone] * Hm Colonoscopy (09/11/2022 2:42 PM EDT) us Jewels Provider HEALTH MAINTENANCE Final Result from Last 3 Months or Most Recently Relevant to Health Maintenance Insurance [address] [place], [place] [id number] LIMITED [place] LIMITED ADULT DENTAL - [place] FULL (MEDICAID) Care Teams Block Press Operator Relationship Specialty Start Date End Date Lee Vines MD [address] [place] [address] PCP - General Internal Medicine 09/05/19 Tamika Snyder DDS [address] [place] [address] Dental End User Support Specialist 01/30/24
[2024-09-05 14:39] LABS: Alanine Aminotransferase 26 U/L (0-40); Albumin Level 4.5 g/dL (3.5-5.0); Alkaline Phosphatase 93 U/L (39-117); Anion Gap 11 (12-20); Aspartate Amino Transferase 22 U/L (5-37); Blood Urea Nitrogen 18 mg/dL (9-16); Calcium 9.2 mg/dL (8.4-10.2); Carbon Dioxide 26 mmol/L (22-29); Chloride 106 mmol/L (96-108); Estimated Glomerular Filt Rate > 60; Potassium 4.5 mmol/L (3.3-5.1); Sodium 138 mmol/L (135-145); Total Protein 7.2 g/dL (6.5-8.0)
[2024-09-06 08:34] LABS: ~HepC Num1 0.08 S/CO (0.00-0.79); ~Hepatitis C Antibody Nonreactive (Nonreactive)
[2024-09-08 13:28] LABS: HIV RNA PCR Qn Copies NOT DETECTED copies/mL (NOT DETECTED); HIV RNA PCR Qn Log Copies NOT DETECTED (NOT DETECTED)
== END 2024-09-05 11:04 | disposition home or self-care (01) ==
LOC: HO.HHCL 11:03
PROVIDERS: PCP Internal Medicine; Visit Provider Internal Medicine
DX: Z79.899 Other long term (current) drug therapy (principal)
CPT/HCPCS: 36415; 80053; 86592; 86803; 87536

== ENCOUNTER 2024-11-07 13:36 | Outpatient (REF) | payer MEDICAID, OTHER, SELFPAY ==
--- OUTSIDE RECORDS SUMMARY | 2024-11-07 11:00 | XMS_ITS | Encounter Summary ---
Author Organization [email or web address] Address [address] [place] [address] Care Team Providers Care Supervisor Plastering Name Role Phone eLe Vines MD Primary Care Prov ider Tamika Snyder DDS Unavailable [phone] Encounter Details Date Type Department Care Team (Latest Contact Info) Description 11/07/2024 11:00 AM EDT Clinical Support [facility] MED[facility] [address] [place] [address] Guerita Fall, RN [address] [place] [address] On pre-exposure prophylaxis for HIV (Primary Dx) [...] as of this encounter Progress Notes * Guerita Fall RN - 11/07/2024 11:00 AM EDT Pt here for 14th injection of APRETUDE (600-mg cabotegravir). Reports tolerating [...] PrEP - if desired and appropriate. Plan: Thorough STI testing every other visit (every 4 mos) or sooner if needed in addition to HIV testing. Next due December 2024. LFTs - done 03/07/24, next due 03/07/25 Return for HIV testing and Apretude injection: 01/02/25 @11am documented in this encounter Plan of Treatment Upcoming Encounters Date Type Department Care Team (Late st Contact Info) Description 01/02/2025 1:00 PM EST Clinical Support [facility] MEDICINE [address] [place] [phone] Guerita Fall, SANTIAGO [address] [place] [address] 01/29/2025 10:00 AM EST Office Visit [facility] AD[facility] [address] [place] [address] Socorro Acuña Scheduled Orders Name Type Priority Associated Diagnoses Orde r Schedule HIV-1 RNA, Quantitative, Real-Time PCR Lab Routine On pre-exposure prophylaxis for HIV Expected: 11/07/2024 (Approximate), Expires: 11/07/2025 Chlamydia/Trichomonas/Ne isseria gonorrhoeae, PCR, Urine Lab Routine On pre-exposure prophylaxis for HIV Expected: 11/07/2024 (Approximate), Expires: 11/07/2025 Hepatitis C Antibody with Reflex to HCV, RNA, Quantitative, Real-Time PCR Lab Routine On pre-exposure prophylaxis for HIV Expected: 11/07/2024 (Approximate), Expires: 11/07/2025 RPR (Monitor) with Reflex to Titer Lab Routine On pre-exposure prophylaxis for HIV Expected: 11/07/2024 (Approximate), Expires: 11/07/2025 documented as of this encounter Procedures Procedure Name Priority Date/Time Associated Diagnosis Comments POCT RAPID HIV SCREENING Routine 11/07/2024 2:02 PM EDT On pre-exposure prophylaxis for HIV documented in this encounter Results * POCT Rapid HIV Screening (11/07/2024 2:02 PM EDT) Blood 11/07/2024 2:02 PM EDT Narrative Guerita Fall, SANTIAGO - 11/07/2024 2:02 PM EDT negative Lee Bautista MD POINT OF CARE TEST ENTER/EDIT ORDERABLES Final Result documented in this encounter Visit Diagnoses Diagnosis On pre-exposure prophylaxis for HIV- Primary documented in this encounter Administered Medications Active Administered Medications - up to 3 most recent administrations Medication Order MAR Action Action Date Dose Rate Site Cabotegravir ER Suspension Extended Release 600 mg 600 mg, Intramuscular, Every 8 weeks, First dose on 09/06/24 at 0900, Ventrogluteal.Indication s:On pre-exposure prophylaxis for HIV Given 11/07/2024 9:00 AM EDT 600 mg Left Upper Buttock Given 09/05/2024 11:39 AM EDT 600 mg L eft Ventrogluteal documented in this encounter Additional Health Concerns Assessment Noted Time PHQ-9 Depression Total Score: 0 06/25/19 25 2:24 PM EDT documented as of this encounter Care Teams Supervisor Plastering Relationship Specialty Start Date End Date Lee Vines MD [address] [place] [address] PCP - General Internal Medicine 09/05/19 Tamika Snyder DDS [address] [place] [address] Dental Foreman/Project Manager 01/30/24 documented as of this encounter
--- OUTSIDE RECORDS SUMMARY | 2024-11-07 16:28 | XMS_ITS | Encounter Summary ---
Author Organization [employer] Address [address] [place] [address] Care Team Providers Care Advanced Manager Name Role Phone Lee Vines MD Primary Care Prov ider Tamika Snyder DDS Unavailable Encounter Details Date Type Department Care Team ([facility] st Contact Info) Description 08/25/2024 Orders Only [facility] [address] [place] [address] ProviderJewels MD Social History Tobacco Use Types Packs/Day Years Used Date Smoking Tobacco: Every Day Cigarettes Passive Smoke Exposure: Past Smokeless Tobacco: Never Comments:vapes Alcohol Use Standard Drinks/Week Comments Yes [...] Description 01/02/2025 1:00 PM EST Clinical Support [facility] [address] [place] [address] Guerita Fall, RN [address] [place] [address] 01/29/2025 10:00 AM EST Office Visit [facility] [address] [place] [address] Socorro Acuña documented as of this encounter Procedures Procedure Name Priority Date/Time Associated Diagnosis Comments HM COLONOSCOPY Routine 09/11/2022 2:42 PM EDT documented in this encounter Results * Hm Colonoscopy (09/11/2022 2:42 PM EDT) Historical Provider HEALTH MAINTENANCE Final Result documented in this encounter Visit Diagnoses Not on filedocumented in this encounter Additional Health Concerns Assessment Noted Time PHQ-9 Depression Total Score: 0 06/25/19 25 2:24 PM EDT documented as of this encounter Care Teams Advanced Manager Relationship Specialty Start Date End Date Lee Vines MD [address] [place] [address] PCP - General Internal Medicine 09/05/19 Tamika Snyder DDS [address] [place] [address] Dental Biologist 01/30/24 documented as of this encounter
--- OUTSIDE RECORDS SUMMARY | 2024-11-07 16:28 | XMS_ITS | Encounter Summary ---
Author Organization [employer] Address [address] [facility] 7t [place] [address] Care Team Providers Care Compliance Associate Name Role Phone Lee Vines MD Primary Care Prov ider Tamika Snyder DDS Unavailable [phone] Encounter Details Date Type Department Care Team ([facility] st Contact Info) Description 12/19/2022 Orders Only [facility] CHC MED & PEDS [address] [place], [place] [phone] Lee Vines MD 505 [place] [address] Social History Tobacco Use Types Packs/Day Years [...] Description 01/02/2025 1:00 PM EST Clinical Support [facility] MEDICINE [address] [place] [address] Guerita Fall, SANTIAGO [address] [place] [address] 01/29/2025 10:00 AM EST Office Visit [facility] CHC ADULT DENTAL [address] [place] [address] Socorro Acuña documented as of this encounter Visit Diagnoses Not on filedocumented in this encounter Additional Health Concerns Assessment Noted Time PHQ-9 Depression Total Score: 0 05/17/19 23 9:49 AM EDT documented as of this encounter Care Teams Compliance Associate Relationship Specialty Start Date End Date Lee Vines MD 505 [place] [address] PCP - General Internal Medicine 09/05/19 Tamika Snyder DDS [address] [place] [address] Dental Back Roller 01/30/24 documented as of this encounter
--- OUTSIDE RECORDS SUMMARY | 2024-11-07 16:28 | XMS_ITS | Encounter Summary ---
Author Organization [employer] Address [address] [place] [address] 7t [place] [address] Care Team Providers Care Personal Financial Planner Name Role Phone Lee Vines MD Primary Care Prov ider Tamika Snyder DDS Unavailable [phone] Encounter Details Date Type Department Care Team (Late st Contact Info) Description 04/10/2022 Orders Only [facility] MEDICINE [address] [place] [phone] Lee Vines MD [address] [place], [place] [phone] On pre-exposure prophylaxis for HIV (Primary Dx) [...] Description 01/02/2025 1:00 PM EST Clinical Support [facility] MEDIC[facility] [address] [place] [address] Guerita Fall, SANTIAGO [address] [place] [address] 01/29/2025 10:00 AM EST Office Visit [facility] CHC ADULT DENTAL [address] [place] [address] Socorro Acuña documented as of this encounter Visit Diagnoses Diagnosis On pre-exposure prophylaxis for HIV- Primary documented in this encounter Care Teams Personal Financial Planner Relationship Specialty Start Date End Date Lee Vines MD [address] [place] [address] PCP - General Internal Medicine 09/05/19 Tamika Snyder DDS [address] [place] [address] Dental Construction Controller 01/30/24 documented as of this encounter
--- OUTSIDE RECORDS SUMMARY | 2024-11-07 16:28 | XMS_ITS | Clinical Summary ---
Author Organization [employer] [facility] Address [address] [place] [address] Care Team Providers Care Manager Of Creative Services Name Role Phone Haydee Frazier MD Primary Care Provider [phone] Family History Relation Name Status Comments Father [...] Panel) 03/27/2023 Colorectal Cancer Screening: Colonoscopy 03/27/2023 HIV Screening 03/27/2023 Hepatitis C Screening 03/27/2023 Social Influencers of Health Screening 03/27/2023 Depression Screening 02/27/2024 COVID-19 Vaccine ( - 2023-2 5 season) 2024 Influenza Vaccine (#1) 2024 HIB Vaccines Aged [...] age to complete this topic Care Teams Manager Of Creative Services Relationship Specialty Start Date End Date Haydee Frazier MD [address] [place] [address] PCP - General 04/20/05
--- OUTSIDE RECORDS SUMMARY | 2024-11-07 16:28 | XMS_ITS | Encounter Summary ---
Author Organization [employer] Address [address] [place] [address] 7t [place] [address] Care Team Providers Care Electric Distribution Engineer Name Role Phone Lee Vines MD Primary Care Prov ider Tamika Snyder DDS Unavailable [phone] Reason for Visit * Reason Comments Med Refill Encounter Details Date Type Department Care Team ([facility] st Contact Info) Description 12/15/2022 Refill [facility] CHC MED & PEDS [address] [place], [place] [phone] Lee Vines MD 505 [place] [address] Type 2 diabetes mellitus with hyperglycemia, without [...] Description 01/02/2025 1:00 PM EST Clinical Support [facility] MEDICINE [address] [place] [address] Guerita Fall, RN [address] [place] [address] 01/29/2025 10:00 AM EST Office Visit [facility] CHC ADULT DENTAL 505 [place] [address] Socorro Acuña documented as of this encounter Visit Diagnoses Diagnosis Type 2 diabetes mellitus with hyperglycemia, without long-term current use of insulin (CMS/HCC) Alcohol use disorder, severe, dependence (CMS/HCC) documented in this encounter Additional Health Concerns Assessment Noted Time PHQ-9 Depression Total Score: 0 05/17/19 23 9:49 AM EDT documented as of this encounter Care Teams Electric Distribution Engineer Relationship Specialty Start Date End Date Lee Vines MD 505 [place] [address] PCP - General Internal Medicine 09/05/19 Tamika Snyder DDS 505 [place] [address] Dental Thermal Surfacing Machine Operator 01/30/24 documented as of this encounter
--- OUTSIDE RECORDS SUMMARY | 2024-11-07 16:28 | XMS_ITS | Encounter Summary ---
Author Organization [employer] Address [address] [facility] 7t [place] [address] Care Team Providers Care Mental Health Assistant Name Role Phone Lee Vines MD Primary Care Prov ider Tamika Snyder DDS Unavailable [phone] Encounter Details Date Type Department Care Team (Latest Contact Info) Description 11/07/2024 Travel Social History Tobacco Use Types Packs/Day [...] PM EST Clinical Support [facility] MEDICINE [address] [place] [address] Guerita Fall, RN 230 [place] [address] 01/29/2025 10:00 AM EST Office Visit [facility] CHC ADULT DENTAL 505 [place] [address] Socorro Acuña documented as of this encounter Visit Diagnoses Not on filedocumented in this encounter Additional Health Concerns Assessment Noted Time PHQ-9 Depression Total Score: 0 06/25/19 25 2:24 PM EDT documented as of this encounter Care Teams Mental Health Assistant Relationship Specialty Start Date End Date Lee Vines MD 505 [place] [address] PCP - General Internal Medicine 09/05/19 Tamika Snyder DDS [address] [place] [address] Dental Cow Rider 01/30/24 documented as of this encounter
--- OUTSIDE RECORDS SUMMARY | 2024-11-07 16:28 | XMS_ITS | Clinical Summary ---
Author Organization [employer] Address [address] [facility] 7t [place] [address] Care Team Providers Care Stamp Classifier Name Role Phone Lee Vines MD Primary Care Prov ider Tamika Snyder DDS Unavailable [phone] Allergies No known active allergies Medications TRUEplus [...] DAY 30 tablet 1 12/19/19 23 Active Additional Information Patient not taking.Reported on 09/23/2024 lisinopril 30 MG tabletIndications: Primary hypertension Take [...] NEEDED. 30 tablet 3 05/29/19 25 Active empagliflozin (Jardiance) 25 MG Take 1 tablet (25 mg) by mouth Once per day. 90 tablet 3 06/25/19 25 026 Active metFORMIN (Glucophage) 1000 MG tabletIndications: Type 2 diabetes mellitus without complication, without long-term current use of insulin ([facility]) Take 1 tablet (1,000 mg) by mouth 2 times daily. 180 tablet 3 06/25/19 25 Active ibuprofen 600 MG tablet Take 1 tablet (600 mg) by mouth every 6 (six) hours if needed for mild pain for up to 20 doses. 20 tablet 08/26/19 25 Active atorvastatin (Lipitor) 40 MG tabletIndications: Mixed hyperlipidemia Take 1 tablet (40 mg) by mouth Once per day. 90 tablet 3 09/24/19 25 Active ibuprofen 600 MG tablet Take 1 tablet (600 mg) by mouth every 6 (six) hours if needed for mild pain for up to 20 doses. 20 tablet 10/02/19 25 Active Hospital, Clinic, or Other Facility [...] diet Essential hypertension 01/09/2024 Assessment & Plan (09/23/2024 1:49 PM EDT): Controlled, keep low sodium diet and exercise as tolerated, keep bp log, target <130/80, follow up 3-4 months Assessment & Plan (01/09/2024 6:57 PM EST): [...] use of insulin 04/04/2022 Assessment & Plan (09/23/2024 1:51 PM EDT): Last A1c was 6.2%, encouraged to continue a low carb/no sugar diet, follow up in 3 months Assessment & Plan (01/09/2024 6:58 PM EST): [...] 100mg Mixed hyperlipidemia 04/04/2022 Assessment & Plan (09/23/2024 1:50 PM EDT): On statin therapy, no changes will be made, keep low cholesterol diet, labs reviewed Assessment & Plan (01/09/2024 6:59 PM EST): [...] Encounters Date Type Department Care Team Description 11/07/2024 11:00 AM EDT Clinical Support [facility] MEDICINE [address] [place] [address] Guerita Fall, SANTIAGO On pre-exposure prophylaxis for HIV (Primary Dx) 11/07/2024 Travel 10/03/2024 3:00 PM EDT Office Visit [facility] OPTOMETRY [address] [place] [address] Joel, Jyoti, OD Diabetes type 2, no ocular involvement (CMS/HCC) (Primary Dx); Combined forms of age-related cataract of both eyes; Presbyopia 10/03/2024 Travel 10/01/2024 2:00 PM EDT Office Visit [facility] ADULT DENTAL [address] [place] [address] Kevin, Manuelito 09/23/2024 2:00 PM EDT Office Visit [facility] ADULT DENTAL [address] [place] [address] Kevin, [facility] 09/23/2024 1:15 PM EDT Telemedicine [facility] MED & PEDS [address] [place] [address] Lee Vines MD Essential hypertension (Primary Dx); Mixed hyperlipidemia; Type 2 diabetes mellitus with hyperglycemia, without long-term current use of insulin (CMS/HCC) 09/23/2024 Travel 09/05/2024 11:00 AM EDT Clinical Support [facility] MEDICINE [address] [place] [address] Angelia Thakkar, SANTIAGO On pre-exposure prophylaxis for HIV 09/05/2024 Orders Only [facility] MED & PEDS [address] [place] [address] Lee Vines MD 09/05/2024 Travel 08/25/2024 1:00 PM EDT Office Visit [facility] ADULT DENTAL [address] [place] [address] Manuelito Brown 08/25/2024 Orders Only [facility] MED & PEDS [address] [place] [address] Provider, MD Jewels from Last 3 Months Immunizations Immunization Administration [...] Tobacco: Current Tobacco Cessation:Ready to Q uit: No; Counseling Given: No Comments:vapes Alcohol Use Standard Drinks/Week Comments Yes [...] Sign Reading Time Taken Comments Blood Pressure 118/80 10/01/2024 1:44 PM EDT Pulse 68 09/23/2024 1:46 PM EDT Temperature 36.3 C (97.3 F) 01/09/2024 4:06 [...] Description 01/02/2025 1:00 PM EST Clinical Support [facility] MEDICINE [address] [place] [address] Guerita Fall, RN [address] [place] [address] 01/29/2025 10:00 AM EST Office Visit [facility] CHC ADULT DENTAL [address] [place] [address] Socorro Acuña Health Maintenance Due Date Last Done Comments CT Colonography 1976 FIT DNA/Cologuard 1976 FIT 1976 FOBT 1976 Sigmoidoscopy 1976 Disability Screening 1976 Family Planning (PISQ) 02/15/1991 Diabetes: Foot Exam 07/02/2024 07/03/2023, 07/03/2023, 07/03/2023, Additional history exists COVID-19 Vaccine ( season) 2024 02/28/2021, 07/15/2020, 06/17/2020 Influenza Vaccine (#1) 2024 , 12/19/2022, 12/12/2021, Additional history exists Diabetes: Hemoglobin A1C 01/04/2025 025, 11/08/2023, 07/19/2023, Additional history exists Dental Oral Exam 01/24/2025 07/23/2024, , 12/19/2022, Additional history exists Dental Prophylaxis 01/24/2025 07/23/2024, 1 03/23/2023, 07/19/2023, Additional history exists Alcohol/Substance Use Screening 06/24/2025 06/24/2024 Depression Screening 06/24/2025 06/24/2024, 06/25/19 SDOH Screening 06/24/2025 06/24/2024 Diabetes: Urine Protein Screening 07/04/2025 07/04/2024, 01/12/2023, 02/21/2021, Additional history exists Lipid Panel 07/04/2025 07/04/2024, 12/28, 07/19/2023, Additional history exists Dental X-Ray: Bitewings 07/24/2025 07/24/19 25, 07/19/2023, 06/09/2022 Tobacco Screening 10/21/2025 10/21/2024 Zoster Vaccines (1 of 2) 02/15/2026 Eye Exam 10/03/2026 10/03/2024, 08/09/2024, 10/03/2024, Additional history exists Colonoscopy 09/12/2027 09/11/2022 Colorectal Cancer Screening 09/12/2027 Dental X-Ray: Full Mouth 10/03/2027 10/01/2024, 05/27 DTaP/Tdap/Td Vaccines (3 - Td or Tdap) 04/01/2029 04/01/2019, 07/21/2017 RSV Patients and Patients Aged 60 years or older (1 - 1-dose 75+ series) 02/15/2051 Pneumococcal Vaccine: Pediatrics (0 to 5 Years) and At-Risk Patients (6 to 49) Years Completed 01/09/2024, 08/15/2016 Hepatitis B Vaccines Completed 05/02/2024, 06/10/2019, 04/29/2019 HIV Screening Completed 09/05/2024, 10/2024, 05/02/2024, Additional history exists Hepatitis C Screening Completed 09/05/2024 , 05/02/2024, 09/13/2023, Additional history exists HIB Vaccines Aged Out [...] PM EDT On pre-exposure prophylaxis for HIV CASE PRESENTATION, DETAILED AND EXTENSIVE TREATMENT PLANNING Routine 10/01/2024 2:00 PM EDT PANORAMIC RADIOGRAPHIC IMAGE Routine 10/01/2024 2:00 PM EDT 32 EXTRACTION, ERUPTED TOOTH OR EXPOSED ROOT (ELEVATION/FORCEPS REMOVAL) Routine 10/01/2024 2:00 PM EDT 17 EXTRACTION, ERUPTED TOOTH OR EXPOSED ROOT (ELEVATION/FORCEPS REMOVAL) Routine 10/01/2024 2:00 PM EDT CASE PRESENTATION, DETAILED AND EXTENSIVE TREATMENT PLANNING Routine 09/23/2024 2:00 PM EDT 30 B RESIN-BASED COMPOSITE - 1 SURF, POSTERIOR Routine 09/23/2024 2:00 PM EDT 29 B RESIN-BASED COMPOSITE - 1 SURF, POSTERIOR Routine 09/23/2024 2:00 PM EDT HIV 1 RNA, QUANTITATIVE REAL TIME PCR Routine 09/05/2024 11:11 AM EDT RPR (MONITOR) W/REFL TITER Routine 09/05/2024 11:11 AM EDT HEPATITIS C AB W/REFL TO HCV RNA, QN, PCR Routine 09/05/2024 11:11 AM EDT COMPREHENSIVE METABOLIC PANEL Routine 09/05/2024 11:11 AM EDT 8 ENDODONTIC THERAPY, ANTERIOR TOOTH Routine 08/25/2024 1:00 PM EDT PROPHYLAXIS - ADULT Routine 07/23/2024 1 0:00 AM EDT BITEWINGS - 4 RADIOGRAPHIC IMAGES Routine 07/23/2024 10:00 AM EDT PERIODIC ORAL EVALUATION - ESTABLISHED PATIENT Routine 07/23/2024 10:00 AM EDT ALBUMIN, RANDOM URINE W/CREATININE Routine 07/04/2024 11:40 AM EDT Type 2 diabetes mellitus without complication, without long-term current use of insulin (CMS/HCC) HEMOGLOBIN A1C Routine 07/04/2024 11:40 AM EDT Type 2 diabetes mellitus without complication, without long-term current use of insulin (CMS/HCC) LIPID PANEL, STANDARD Routine 07/04/2024 11:40 AM EDT Type 2 diabetes mellitus without complication, without long-term current use of insulin (CMS/HCC) HM COLONOSCOPY Routine 09/11/2022 2:42 PM EDT from Last 3 Months or Most Recently Relevant to Health Maintenance Results * POCT Rapid HIV Screening (11/07/2024 2:02 PM EDT) Blood 11/07/2024 2:02 PM EDT Narrative Guerita Fall RN - 11/07/2024 2:02 PM EDT negative Lee Bautista MD POINT OF CARE TEST ENTER/EDIT ORDERABLES Final Result * Hepatitis C Antibody with Reflex to HCV, RNA, Quantitative, Real-Time PCR (09/05/2024 11:11 AM EDT) [facility] Hepatitis C Antibody Nonreactive Nonreactive [facility] Comment:Antibodies to HCV no t detected; does not exclude early acuteHCV infection. 09/05/2024 11:1 1 AM EDT 09/05/2024 2:00 PM EDT Lee Bautista MD LAB BLOOD ORDERABL ES Final Result Performing Organization Address [facility] Co de Phone Number [facility] [address] [place] [phone] * HIV-1 RNA, Quantitative, Real-Time PCR (09/05/2024 11:11 AM EDT) [facility] HIV RNA PCR Qn Copies NOT DETECTED NOT DETECTED copies/mL [facility] HIV RNA PCR Qn Log Copies NOT DETECTED NOT DETECTED [facility] Comment:Result Units: Log co pies/mLThis test was performed using Real-Time Polymerase ChainReaction.Reportable Range: 20 copies/mL to 10,000,000 copies/mL(1.30 log copies/mL to 7.00 log copies/mL).THIS TEST WAS PERFORMED AT:[facility] [address] [phone] MASON MD 09/05/2024 11:1 1 AM EDT 09/05/2024 2:00 PM EDT Lee Bautista MD LAB BLOOD ORDERABL ES Final Result Performing Organization Address [facility] de Phone Number [facility] [address] [place] [phone] * RPR (Monitor) with Reflex to??Titer (09/05/2024 11:11 AM EDT) RPR (Monitor) w/Refl Titer NON-REACTI VE NON-REACT AMITA [facility] Comment:THIS TEST WAS PERFOR MED AT:[facility] [place] [phone] MASON MD Rapid Plasma Reagin Ab Titer TNP [facility] 09/05/2024 11:1 1 AM EDT 09/05/2024 2:00 PM EDT us Lee Bautista MD LAB BLOOD ORDERABL ES Final Result [facility] [address] [place] [phone] * (ABNORMAL) Comprehensive Metabolic Panel (09/05/2024 11:11 AM EDT) Sodium 138 135 - 145 mmol/L [facility] Potassium 4.5 3.3 - 5.1 mmol/L [facility] Chloride 106 96 - 108 mmol/L [facility] Carbon Dioxide 26 22 - 29 mmol/L [facility] Anion Gap 11(L) 12 - 20 [facility] Urea Nitrogen (BUN) 18(H) 9 - 16 mg/dL [facility] Creatinine, Serum 0.95 0.5 - 1.4 mg/dL [facility] Estimated Glomerular Filt Rate >60 [facility] Comment:Chronic Kidney Disea se: Estimated GFR < 60 mL/min/[id number] Kidney Disease: Estimated GFR < 15 mL/min/1.73m2 Glucose 123(H) 60 - 115 mg/dL [facility] Calcium 9.2 8.4 - 10.2 mg/dL [facility] Bilirubin, Total 0.7 0.0 - 1.0 mg/dL [facility] Aspartate Amino Transferase 22 5 - 37 U/L [facility] Alanine Aminotransferase 26 0 - 40 U/L [facility] Total Protein 7.2 6.5 - 8.0 g/dL [facility] Albumin Level 4.5 3.5 - 5.0 g/dL [facility] Alkaline Phosphatase 93 39 - 117 U/L [facility] 09/05/2024 11:1 1 AM EDT 09/05/2024 2:00 PM EDT Lee Bautista MD LAB BLOOD ORDERABL ES Final Result Performing Organization Address [facility] de Phone Number [facility] [address] [place] [phone] * Albumin, Random Urine W/Creatinine (07/04/2024 11:40 AM EDT) Creatinine, Urine 49.45 mg/dL [facility] Microalbumin Urine 5.0 mg/L [facility] Microalbum Creatinine Ratio Ur 10.1 <30 ug/mg cr [facility] Comment:Albumin/Creatinine R atio Reference Ranges: Normal: < 30 ug/mg creatinine Microalbuminuria: 30 - 300 ug/mg creatinineClinical Albuminuria: > 300 ug/mg creatinine Urine (Urine, Random) 07/04/2024 11:40 AM EDT 07/04/2024 1:04 PM EDT Lee Bautista MD LAB URINE ORDERABL ES Final Result Performing Organization Address [facility] de Phone Number [facility] [address] [place] [phone] * (ABNORMAL) Hemoglobin A1c (07/04/2024 11:40 AM EDT) Hemoglobin A1c 6.2(H) <6.0 % [facility] Comment:Hemoglobin A1C Refer ence Range Adults: 4.8 - 6.0 % Non diabetic: < 6.0 % Goal: < 7.0 %Additional Action Suggested: > 8.0 %Note: Hemoglobin A1c results are invalid for patients with abnormal amounts of HbF. Blood transfusions may impact the HbA1c concentration in the patient sample. Estimated Average Glucose 131 mg/dL [facility] Comment:eAG = Estimated ave rage glucose which is %A1C expressed asaverage glucose, using the formula of the M1Q-LnkxsmwQdyzhda Glucose study (ADAG), Diabetes Care, Vol.31,#8,Sep. 2007 Blood Venous blood specimen / Unknown 07/04/2024 11:40 AM EDT 07/04/2024 1:07 PM EDT us Lee Bautista MD LAB BLOOD ORDERABL ES Final Result Performing Organization Address [facility] Co de Phone Number [facility] [address] [place] [address] [phone] * (ABNORMAL) Lipid Panel, Standard (07/04/2024 11:40 AM EDT) Triglycerides 82 <150 mg/dL [facility] Comment:Desirable Triglyceri de: less than 150 mg/dLBorderline High Triglyceride 150-199 mg/dLHigh Triglyceride: 200-499 mg/dLVery High Triglyceride: greater than or equal to 5OO mg/dL Cholesterol 157 <200 mg/dL [facility] Comment:Desirable Cholestero l: less than 200 mg/dLBorderline High Cholesterol: 200-239 mg/dLHigh Cholesterol: greater than 239 mg/dL LDL Cholesterol Calculated 103(H) <100 mg/dL [facility] Comment:Desirable LDL: less than 100 mg/dLNear Optimal/Above Optimal LDL: 110- 129 mg/dLBorderline High LDL: 130-159 mg/dLHigh LDL: 160-189 mg/dLVery High LDL: greater than or equal to 190 mg/dL HDL Cholesterol 38(L) >40 mg/dL [facility] Comment:Desirable HDL: great er than 40 mg/dL Note: This HDL assay may give artificially low results in patients with liver disease. Blood Venous blood specimen / Unknown 07/04/2024 11:40 AM EDT 07/04/2024 1:12 PM EDT Lee Bautista MD LAB BLOOD ORDERABL ES Final Result [facility] [address] [place] [phone] * Hm Colonoscopy (09/11/2022 2:42 PM EDT) us Historical Provider MD HEALTH MAINTENANCE Final Result from Last 3 Months or Most Recently Relevant to Health Maintenance [place] AD[place]ENT[place] - [place] FULL (MEDICAID) Care Teams Stamp Classifier Relationship Specialty Start Date End Date Lee Vines MD [address] [place] [address] PCP - General Internal Medicine 09/05/19 Tamika Snyder DDS [address] [place] [address] Dental Turpentine Distiller 01/30/24
--- OUTSIDE RECORDS SUMMARY | 2024-11-07 16:28 | XMS_ITS | Encounter Summary ---
Author Organization [employer] Address [address] [place] [address] 7 [place] [address] Care Team Providers Care President And Chief Executive Officer Name Role Phone Lee Vines MD Primary Care Prov ider Tamika Snyder DDS Unavailable [phone] Encounter Details Date Type Department Care Team (Latest Contact Info) Description 09/09/2020 Abstract [facility] CONVERSIONS Dental, Provider, DDS Social History [...] Description 01/02/2025 1:00 PM EST Clinical Support [facility] MEDICINE [address] [place] [address] Guerita Fall, RN [address] [place] [address] 01/29/2025 10:00 AM EST Office Visit [facility] CHC ADULT DENTAL [address] [place] [address] Socorro Acuña documented as of this encounter Visit Diagnoses Not on filedocumented in this encounter Care Teams President And Chief Executive Officer Relationship Specialty Start Date End Date Lee Vines MD [address] [place] [address] PCP - General Internal Medicine 09/05/19 Tamika Snyder DDS [address] [place] [address] Dental Associate Editor 01/30/24 documented as of this encounter
--- OUTSIDE RECORDS SUMMARY | 2024-11-07 16:28 | XMS_ITS | Encounter Summary ---
Author Organization [employer] Address [address] [place] [address] 7 [place] [address] Care Team Providers Care Washing And Screening Plant Supervisor Name Role Phone Lee Vines MD Primary Care Prov ider Tamika Snyder DDS Unavailable [phone] Encounter Details Date Type Department Care Team (Latest Contact Info) Description 04/01/2019 Abstract [facility] CONVERSIONS Dental, Provider, DDS Social [...] Description 01/02/2025 1:00 PM EST Clinical Support [facility] MEDICINE [address] [place] [address] Guerita Fall, RN [address] [place] [address] 01/29/2025 10:00 AM EST Office Visit [facility] CHC ADULT DENTAL [address] [place] [address] Socorro Acuña documented as of this encounter Visit Diagnoses Not on filedocumented in this encounter Care Teams Washing And Screening Plant Supervisor Relationship Specialty Start Date End Date Lee Vines MD [address] [place] [address] PCP - General Internal Medicine 09/05/19 Tamika Snyder DDS [address] [place] [address] Dental Edger Machine Setter 01/30/24 documented as of this encounter
[2024-11-08 09:00] LABS: ~HepC Num1 0.07 S/CO (0.00-0.79); ~Hepatitis C Antibody Nonreactive (Nonreactive)
[2024-11-08 16:33] LABS: HIV RNA PCR Qn Copies NOT DETECTED copies/mL (NOT DETECTED); HIV RNA PCR Qn Log Copies NOT DETECTED (NOT DETECTED)
== END 2024-11-07 13:37 | disposition home or self-care (01) ==
LOC: HO.HHCL 13:36
PROVIDERS: PCP Internal Medicine; Visit Provider Internal Medicine
DX: Z11.59 Encounter for screening for other viral diseases (principal); Z11.3 Encounter for screening for infections with a predominantly sexual mode of transmission; Z11.4 Encounter for screening for human immunodeficiency virus [HIV]; Z79.899 Other long term (current) drug therapy
CPT/HCPCS: 36415; 86592; 86803; 87536

== ENCOUNTER 2025-01-02 14:04 | Outpatient (REF) | payer MEDICAID, OTHER, SELFPAY ==
--- OUTSIDE RECORDS SUMMARY | 2025-01-02 13:00 | XMS_ITS | Encounter Summary ---
Author Organization [employer] Address [address] 7[address] [place] [address] Care Team Providers Care Narcotics Agent Name Role Phone Lee Vines MD Primary Care Prov ider Tamika Snyder DDS Unavailable [phone] Encounter Details Date Type Department Care Team (Latest Contact Info) Description 01/02/2025 1:00 PM EST Clinical Support [facility] [address] [place] [address] Bradford Erickson, SANTIAGO [address] [place] [address] On pre-exposure prophylaxis for HIV (Primary Dx) [...] as of this encounter Progress Notes * Bradford Erickson RN - 01/02/2025 1:00 PM EST Pt here for 14th injection of APRETUDE [...] December 2024. LFTs - done 03/07/24, next due03/06/25 @2pm return for HIV testing and Apretude injection: documented in this encounter Miscellaneous Notes * Addendum Note - Bradford Erickson RN - 01/02/2025 1:00 PM ESTAddended by: BRADFORD ERICKSON on: 01/02/2025 02:27 PM Modules accepted: Orders documented in this encounter Plan of Treatment Upcoming Encounters Date Type Department Care Team (Late st Contact Info) Description 01/07/2025 10:45 AM EST Telemedicine [facility] & [facility]ED[facility] [address] [place] [address] Lee Vines MD [address] [place] [address] 01/29/2025 10:15 AM EST Office Visit [facility] ADULT DENTAL [address], [place] [phone] Socorro Aucña 03/06/2025 2:00 PM EST Clinical Support [facility] [address] [place] [address] Bradford Erickson, RN [address] [place] [address] Scheduled Orders Name Type Priority Associated Diagnoses Orde r Schedule HIV-1 RNA, Quantitative, Real-Time PCR Lab Routine On pre-exposure prophylaxis for HIV Expected: 01/02/2025 (Approximate), Expires: 01/02/2026 Chlamydia/Trichomonas/Ne isseria gonorrhoeae, PCR, Urine Lab Routine On pre-exposure prophylaxis for HIV Expected: 01/02/2025 (Approximate), Expires: 01/02/2026 RPR (Monitor) with Reflex to Titer Lab Routine On pre-exposure prophylaxis for HIV Expected: 01/02/2025 (Approximate), Expires: 01/02/2026 Hepatitis C Antibody with Reflex to HCV, RNA, Quantitative, Real-Time PCR Lab Routine On pre-exposure prophylaxis for HIV Expected: 01/02/2025 (Approximate), Expires: 01/02/2026 documented as of this encounter Procedures Procedure Name Priority Date/Time Associated Diagnosis Comments POCT RAPID HIV SCREENING Routine 01/02/2025 2:27 PM EST On pre-exposure prophylaxis for HIV documented in this encounter Results * POCT Rapid HIV Screening (01/02/2025 2:27 PM EST) Blood 01/02/2025 2:27 PM EST Narrative Bradford Erickson, SANTIAGO - 01/02/2025 2:27 PM EST neg us Lamin Loco MD POINT OF CARE TEST ENTER/EDIT ORDERABLES Final Result documented in this encounter Visit Diagnoses Diagnosis On pre-exposure prophylaxis for HIV- Primary documented in this encounter Administered Medications Inactive Administered Medications - up to 3 most recent administrations Medication Order MAR Action Action Date Dose Rate Site Cabotegravir ER Suspension Extended Release 600 mg 600 mg, Intramuscular, Once, On Sun01/02/25 at 1430, For 1 dose, Ventrogluteal.Indication s:On pre-exposure prophylaxis for HIV Given 01/02/2025 2:30 PM EST 600 mg Left Upper Buttock documented in this encounter Additional Health Concerns Assessment Noted Time PHQ-9 Depression Total Score: 0 06/25/19 2:24 PM EDT documented as of this encounter Care Teams Narcotics Agent Relationship Specialty Start Date End Date Lee Vines MD [address] [place] [address] PCP - General Internal Medicine 09/05/19 Tamika Snyder DDS [address] [place] [address] Dental Dressmaking Teacher 01/30/24 documented as of this encounter
--- OUTSIDE RECORDS SUMMARY | 2025-01-02 15:53 | XMS_ITS | Clinical Summary ---
Author Organization [employer] Address [address] [facility] [address] 7[address] [place] [address] Care Team Providers Care Health Information Administrator Name Role Phone Lee Vines MD Primary Care Prov ider Tamika Snyder DDS Unavailable [phone] Allergies No known active allergies Medications TRUEplus Lancets 33G miscIndications:T ype 2 diabetes mellitus with hyperglycemia, without long-term current use of insulin ([facility]) TEST BLOOD SUGAR EVERY DAY 100 each 11 023 Active Alcohol Swabs (SM Alcohol Prep) 70 % padsIndications:T ype 2 diabetes mellitus with hyperglycemia, without long-term current use of insulin (HCC) USE DIRECTED EVERY DAY 100 each 11 023 Active FREESTYLE LITE test stripIndications: Type 2 diabetes mellitus with hyperglycemia, without long-term current use of insulin (HCC) TEST BLOOD SUGAR EVERY DAY 100 strip 11 023 Active naltrexone (Depade) 50 MG tabletIndications :Alcohol use disorder, severe, dependence (CMS/HCC) ([facility]) TAKE 1 TABLET BY MOUTH EVERY DAY 30 tablet 1 023 Active Additional Information Patient not taking.Reported on 09/23/2024 Cabotegravir ER (Apretude) 600 MG/3ML Suspension Extended ReleaseIndication s:On pre-exposure prophylaxis for HIV Inject 600 mg/3 ML IM Ventrogluteal every 8 weeks 3 mL 5 024 Active Blood Pressure kit 1 kit Once per day. 1 kit 024 Active Blood Glucose Monitoring Suppl (FreeStyle Lite) w/Device kit 1 kit Once per day. 1 kit 025 Active sildenafil (Viagra) 100 MG tabletIndications :Erectile dysfunction due to diseases classified elsewhere TAKE 1 TABLET 1 HOUR BEFORE SEXUAL RELATIONS ONCE DAILY NEEDED. 30 tablet 3 Active empagliflozin (Jardiance) 25 MG Take 1 tablet (25 mg) by mouth Once per day. 90 tablet 3 025 2025 Active metFORMIN (Glucophage) 1000 MG tabletIndications :Type 2 diabetes mellitus without complication, without long-term current use of insulin (HCC) Take 1 tablet (1,000 mg) by mouth 2 times daily. 180 tablet 3 Active ibuprofen 600 MG tablet Take 1 tablet (600 mg) by mouth every 6 (six) hours if needed for mild pain for up to 20 doses. 20 tablet Active atorvastatin (Lipitor) 40 MG tabletIndications :Mixed hyperlipidemia Take 1 tablet (40 mg) by mouth Once per day. 90 tablet 3 025 Active ibuprofen 600 MG tablet Take 1 tablet (600 mg) by mouth every 6 (six) hours if needed for mild pain for up to 20 doses. 20 tablet Active cetirizine (ZyrTEC) 10 MG tabletIndications :Seasonal allergies TAKE ONE TABLET BY MOUTH ONCE DAILY 90 tablet 3 Active lisinopril 30 MG tabletIndications :Primary hypertension TAKE ONE TABLET EVERY DAY 90 tablet 3 Active lisinopril 30 MG tabletIndications :Primary hypertension Take 1 tablet (30 mg) by mouth Once per day. 90 tablet 3 024 2024 Discontinued cetirizine (ZyrTEC) 10 MG tabletIndications :Seasonal allergies TAKE ONE TABLET DAILY 90 tablet 3 024 2024 Discontinued Hospital, Clinic, or Other Facility Administered Medication Ordered Dose Route Frequency Start Date End Date Status Cabotegravir ER Suspension Extended Release 600 mgIndications:On pre-exposure prophylaxis for HIV 600 mg IM Every 8 weeks 09/06/2024 Ac tive Cabotegravir ER Suspension Extended Release 600 mgIndications:On pre-exposure prophylaxis for HIV 600 mg IM Once 01/02/2025 01/02/2025 Ended Active Problems Problem Noted Date Diagnosed [...] Encounters Date Type Department Care Team Description 01/02/2025 1:00 PM EST Clinical Support [facility] [address] [place] [address] Guerita Fall, SANTIAGO On pre-exposure prophylaxis for HIV (Primary Dx) 01/02/2025 Travel 12/25/2024 Refill [facility] [address] [place] [address] Lee Vines MD Seasonal allergies; Primary hypertension 11/12/2024 Telephone [facility] [address] [place] [address] Marj Doherty, SANTIAGO 11/07/2024 11:00 AM EDT Clinical Support [facility] [address] [place] [address] Guerita Fall, RN On pre-exposure prophylaxis for HIV (Primary Dx) 11/07/2024 Orders Only [facility] [address] [place] [address] Lee Vines MD 11/07/2024 Travel 10/03/2024 3:00 PM EDT Office Visit [facility] [address] [place] [address] Joel, Jyoti, OD Diabetes type 2, no ocular involvement (CMS/HCC) (Primary Dx); Combined forms of age-related cataract of both eyes; Presbyopia 10/03/2024 Travel from Last 3 Months Immunizations Immunization [...] Info) Description 01/07/2025 10:45 AM EST Telemedicine [facility]ED[facility] [address] [place] [address] Lee Vines MD [address] [place] [address] 01/29/2025 10:15 AM EST Office Visit [facility] ADULT DENTAL [address] [place] [address] Socorro Acuña 03/06/2025 2:00 PM EST Clinical Support [facility] [address] [place] [address] Guerita Fall, RN [address] [place] [address] Health Maintenance Due Date Last Done Comments [...] of 2) 02/15/2026 Eye Exam 10/03/2026 10/03/2024, 08/0 09/2024, 10/03/2024, Additional history exists Colonoscopy 09/12/2027 09/11/2022 [...] Completed 05/02/2024, 06/10/2019, 04/29/2019 HIV Screening Completed 11/07/2024, 08/26, 07/04/2024, Additional history exists Hepatitis C Screening Completed 11/07/2024 , 09/05/2024, 05/02/2024, Additional history exists HIB Vaccines Aged Out [...] PM EST On pre-exposure prophylaxis for HIV POCT RAPID HIV SCREENING Routine 11/07/2024 2:02 PM EDT On pre-exposure prophylaxis for HIV RPR (MONITOR) W/REFL TITER Routine 11/07/2024 1:44 PM EDT HIV 1 RNA, QUANTITATIVE REAL TIME PCR Routine 11/07/2024 1:44 PM EDT HEPATITIS C AB W/REFL TO HCV RNA, QN, PCR Routine 11/07/2024 1:44 PM EDT CHLAMYDIA/GONORRHEA - URINE ([place] DPH) Routine 11/07/2024 PANORAMIC RADIOGRAPHIC IMAGE Routine 10/01/2024 2:00 PM EDT PROPHYLAXIS - ADULT Routine 07/23/2024 [...] Maintenance Results * POCT Rapid HIV Screening (01/02/2025 2:27 PM EST) Only the most recent of2 resultswithin the time period is included. Blood 01/02/2025 2:27 PM EST Narrative Guerita Fall RN - 01/02/2025 2:27 PM EST neg us Lamin Loco MD POINT OF CARE TEST ENTER/EDIT ORDERABLES Final Result * Hepatitis C Antibody with Reflex to HCV, RNA, Quantitative, Real-Time PCR (11/07/2024 1:44 PM EDT) Hepatitis C Antibody Nonreactive Nonreactive [facility] Comment:Antibodies to HCV no t detected; does not exclude early acuteHCV infection. 11/07/2024 1:44 PM EDT 11/07/2024 4:01 PM EDT Lee Bautista MD LAB BLOOD ORDERABL ES Final Result Performing Organization Address [facility]/ZIP Co de Phone Number [facility] [address] [place] [phone] * HIV-1 RNA, Quantitative, Real-Time PCR (11/07/2024 1:44 PM EDT) HIV RNA PCR Qn Copies NOT DETECTED NOT DETECTED copies/mL [facility] HIV RNA PCR Qn Log Copies NOT DETECTED NOT DETECTED [facility] Comment:Result Units: Log co pies/mLThis test was performed using Real-Time Polymerase ChainReaction.Reportable Range: 20 copies/mL to 10,000,000 copies/mL(1.30 log copies/mL to 7.00 log copies/mL).THIS TEST WAS PERFORMED AT:[facility] [place] [phone] MASON MD 11/07/2024 1:44 PM EDT 11/07/2024 4:01 PM EDT us Lee Bautista MD LAB BLOOD ORDERABL ES Final Result Performing Organization Address [facility] Co de Phone Number [facility] [address] [place] [phone] * RPR (Monitor) with Reflex to??Titer (11/07/2024 1:44 PM EDT) RPR (Monitor) w/Refl Titer NON-REACTI VE NON-REACT AMITA [facility] Comment:THIS TEST WAS PERFOR MED AT:[facility] [place] [phone] MASON MD Rapid Plasma Reagin Ab Titer TNP [facility] 11/07/2024 1:44 PM EDT 11/07/2024 4:01 PM EDT Lee Bautista MD LAB BLOOD ORDERABL ES Final Result Performing Organization Address [facility]/ZIP Co de Phone Number [facility] [address] [place] [address] [phone] * Chlamydia/Gonorrhea, Urine ([place] DPH) (11/07/2024) Chlamydia, Urine Negative Negative, Indeterminate, None Detected, Invalid, Specimen unsatisfactory for evaluation, Weakly Positive, 2+ Gonorrhea, Urine Negative Negative, Indeterminate, None Detected, Invalid, Specimen unsatisfactory for evaluation, Weakly Positive, 2+ Urine 11/07/2024 Jewels Stephens MD LAB URINE ORDERABLES Sharifa l Result * Albumin, Random Urine W/Creatinine (07/04/2024 11:40 AM EDT) Creatinine, Urine 49.45 mg/dL [facility] Microalbumin Urine 5.0 mg/L [facility] Microalbum Creatinine Ratio Ur 10.1 <30 ug/mg cr [facility] Comment:Albumin/Creatinine R atio Reference Ranges: Normal: < 30 ug/mg creatinine Microalbuminuria: 30 - 300 ug/mg creatinineClinical Albuminuria: > 300 ug/mg creatinine Urine (Urine, Random) 07/04/2024 11:40 AM EDT 07/04/2024 1:04 PM EDT Lee Bautista MD LAB URINE ORDERABL ES Final Result Performing Organization Address City/[facility]/ZIP Co de Phone Number [facility] [address] [place] [phone] [phone] * (ABNORMAL) Hemoglobin A1c (07/04/2024 11:40 AM EDT) Hemoglobin A1c 6.2(H) <6.0 % [facility] Comment:Hemoglobin A1C Refer ence Range Adults: 4.8 - 6.0 % Non diabetic: < 6.0 % Goal: < 7.0 %Additional Action Suggested: > 8.0 %Note: Hemoglobin A1c results are invalid for patients with abnormal amounts of HbF. Blood transfusions may impact the HbA1c concentration in the patient sample. Estimated Average Glucose 131 mg/dL [facility] Comment:eAG = Estimated ave rage glucose which is %A1C expressed asaverage glucose, using the formula of the X1V-SfyytboQirzkfb Glucose study (ADAG), Diabetes Care, Vol.31,#8,Sep. 2007 Blood Venous blood specimen / Unknown 07/04/2024 11:40 AM EDT 07/04/2024 1:07 PM EDT us Lee Bautista MD LAB BLOOD ORDERABL ES Final Result [facility] [address] [place] [phone] [phone] * (ABNORMAL) Lipid Panel, Standard (07/04/2024 11:40 AM EDT) Triglycerides 82 <150 mg/dL [facility] Comment:Desirable Triglyceri de: less than 150 mg/dLBorderline High Triglyceride 150-199 mg/dLHigh Triglyceride: 200-499 mg/dLVery High Triglyceride: greater than or equal to 5OO mg/dL Cholesterol 157 <200 mg/dL [facility] Comment:Desirable Cholestero l: less than 200 mg/dLBorderline High Cholesterol: 200-239 mg/dLHigh Cholesterol: greater than 239 mg/dL LDL Cholesterol Calculated 103(H) <100 mg/dL [facility] Comment:Desirable LDL: less than 100 mg/dLNear Optimal/Above Optimal LDL: 110- 129 mg/dLBorderline High LDL: 130-159 mg/dLHigh LDL: 160-189 mg/dLVery High LDL: greater than or equal to 190 mg/dL HDL Cholesterol 38(L) >40 mg/dL [facility] Comment:Desirable HDL: great er than 40 mg/dL Note: This HDL assay may give artificially low results in patients with liver disease. Blood Venous blood specimen / Unknown 07/04/2024 11:40 AM EDT 07/04/2024 1:12 PM EDT Lee Bautista MD LAB BLOOD ORDERABL ES Final Result [facility] [address] [place] [address] [phone] * Hm Colonoscopy (09/11/2022 2:42 PM EDT) Historical Provider HEALTH MAINTENANCE Final Result from Last 3 Months or Most Recently Relevant to Health Maintenance [place] FULL (MEDICAID) Care Teams Health Information Administrator Relationship Specialty Start Date End Date Lee Vines MD [address] [place] [address] PCP - General Internal Medicine 09/05/19 Tamika Snyder DDS [address] [place] [address] Dental Tire Mold Engraver 01/30/24
--- OUTSIDE RECORDS SUMMARY | 2025-01-02 15:53 | XMS_ITS | Encounter Summary ---
Author Organization [employer] Address [address] [facility] 7t [place] [address] Care Team Providers Care Fish Boning Machine Feeder Name Role Phone Lee Vines MD Primary Care Prov ider Tamika Snyder DDS Unavailable [phone] Encounter Details Date Type Department Care Team (Latest Contact Info) Description 01/02/2025 Travel Social History Tobacco Use Types Packs/Day [...] Info) Description 01/07/2025 10:45 AM EST Telemedicine [facility] PED[facility] [address] [place] [address] Lee Vines MD [address] [place] [address] 01/29/2025 10:15 AM EST Office Visit [facility] ADULT DENTAL [address] [place] [address] Socorro Acuña 03/06/2025 2:00 PM EST Clinical Support [facility] [address] [place] [address] Guerita Fall, RN [address] [place] [address] documented as of this encounter Visit Diagnoses Not on filedocumented in this encounter Additional Health Concerns Assessment Noted Time PHQ-9 Depression Total Score: 0 06/25/19 25 2:24 PM EDT documented as of this encounter Care Teams Fish Boning Machine Feeder Relationship Specialty Start Date End Date Lee Vines MD [address] [place] [address] PCP - General Internal Medicine 09/05/19 Tamika Snyder DDS [address] [place] [address] Dental Single Stayer Operator 01/30/24 documented as of this encounter
--- OUTSIDE RECORDS SUMMARY | 2025-01-02 15:53 | XMS_ITS | Encounter Summary ---
Author Organization [employer] Address [address] [facility] 7t [place] [address] Care Team Providers Care Purchasing Manager Name Role Phone Lee Vines MD Primary Care Prov ider Tamika Snyder DDS Unavailable [phone] Encounter Details Date Type Department Care Team ([facility] st Contact Info) Description 12/19/2022 Orders Only [facility] [address] [place], [place] [phone] Lee Vines MD [address] [place] [address] Social History Tobacco Use Types Packs/Day Years [...] 01/07/2025 10:45 AM EST Telemedicine [facility] [address] [place] [address] Lee Vines MD [address] [place] [address] 01/29/2025 10:15 AM EST Office Visit [facility] ADULT DENT[facility] [address] [place] [address] Socorro Acuña 03/06/2025 2:00 PM EST Clinical Support [facility] [address] [place] [address] Guerita Fall, RN [address] [place] [address] documented as of this encounter Visit Diagnoses Not on filedocumented in this encounter Additional Health Concerns Assessment Noted Time PHQ-9 Depression Total Score: 0 05/17/19 23 9:49 AM EDT documented as of this encounter Care Teams Purchasing Manager Relationship Specialty Start Date End Date Lee Vines MD [address] [place] [address] PCP - General Internal Medicine 09/05/19 Tamika Snyder DDS [address] [place] [address] Dental Ux Developer Designer 01/30/24 documented as of this encounter
--- OUTSIDE RECORDS SUMMARY | 2025-01-02 15:53 | XMS_ITS | Clinical Summary ---
Author Organization [employer] [facility] ity Address [address] [place] [address] Care Team Providers Care Specialties Operator Name Role Phone Haydee Frazier MD Primary Care Provider [phone] Family History Relation Name Status Comments Father [...] Health Maintenance Due Date Last Done Comments Colorectal Cancer Screening: Colonoscopy 1976 DTaP,Tdap,and Td Vaccines (1 - Tdap) 02/15/1995 Hepatitis B Vaccines (1 of 3 - 19+ 3-dose series) 02/15/1995 Cholesterol Screening (Lipid Panel) 03/27/2023 HIV Screening 03/27/2023 Hepatitis C Screening 03/27/2023 Social Influencers of Health Screening 03/27/2023 Depression Screening 02/27/2024 COVID-19 Vaccine ( - 2023-2 5 season) 2024 Influenza Vaccine (#1) 2024 RSV Immunization Adult Patie nts (1 - 1-dose 75+ series) 02/15/2051 HIB Vaccines Aged Out No longer eligi [...] age to complete this topic Care Teams Specialties Operator Relationship Specialty Start Date End Date Haydee Frazier MD [address] [place] [address] PCP - General 04/20/05
--- OUTSIDE RECORDS SUMMARY | 2025-01-02 15:54 | XMS_ITS | Encounter Summary ---
Author Organization [employer] Address [address] [facility] [place] [address] Care Team Providers Care Force Variation Equipment Tender Name Role Phone Lee Vines MD Primary Care Prov ider Tamika Snyder DDS Unavailable [phone] Encounter Details Date Type Department Care Team ([facility] st Contact Info) Description 08/25/2024 Orders Only [facility] [address] [place] [address] ProviderJewels MD Social History Tobacco Use Types [...] Info) Description 01/07/2025 10:45 AM EST Telemedicine [facility] [address] [place] [address] Lee Vines MD [address] [place] [address] 01/29/2025 10:15 AM EST Office Visit [facility] [address] [place] [address] Socorro Acuña 03/06/2025 2:00 PM EST Clinical Support [facility] [address] [place] [address] Guerita Fall, RN [address] [place] [address] documented as of this encounter Procedures Procedure Name Priority Date/Time Associated Diagnosis Comments HM COLONOSCOPY Routine 09/11/2022 2:42 PM EDT documented in this encounter Results * Hm Colonoscopy (09/11/2022 2:42 PM EDT) us Historical Provider HEALTH MAINTENANCE Final Result documented in this encounter Visit Diagnoses Not on filedocumented in this encounter Additional Health Concerns Assessment Noted Time PHQ-9 Depression Total Score: 0 06/25/19 25 2:24 PM EDT documented as of this encounter Care Teams Force Variation Equipment Tender Relationship Specialty Start Date End Date Lee Vines MD [address] [place] [address] PCP - General Internal Medicine 09/05/19 Tamika Snyder DDS [address] [place] [address] Dental Retail Solar Advisor 01/30/24 documented as of this encounter
--- OUTSIDE RECORDS SUMMARY | 2025-01-02 15:54 | XMS_ITS | Encounter Summary ---
Author Organization [employer] Address [address] [place] [address] [address] [place] [address] Care Team Providers Care Sports Cartoonist Name Role Phone Lee Vines MD Primary Care Prov ider Tamika Snyder DDS Unavailable [phone] Encounter Details Date Type Department Care Team (Latest Contact Info) Description 09/09/2020 Abstract [facility] CONVERSIONS Dental, Provider, DDS [...] Care Team ( st Contact Info) Description 01/07/2025 10:45 AM EST Telemedicine [facility] [address] [place] [address] Lee Vines MD [address] [place] [address] 01/29/2025 10:15 AM EST Office Visit [facility] AD[facility] [address] [place] [address] Socorro Acuña 03/06/2025 2:00 PM EST Clinical Support [facility] [address] [place] [address] Guerita Fall, RN [address] [place] [address] documented as of this encounter Visit Diagnoses Not on filedocumented in this encounter Care Teams Sports Cartoonist Relationship Specialty Start Date End Date Lee Vines MD [address] [place] [address] PCP - General Internal Medicine 09/05/19 Tamika Snyder DDS [address] [place] [address] Dental Motorcycle Racer 01/30/24 documented as of this encounter
--- OUTSIDE RECORDS SUMMARY | 2025-01-02 15:54 | XMS_ITS | Encounter Summary ---
Author Organization [employer] Address [address] [place] [address] [address] [place] [address] Care Team Providers Care Anesthesiologists' Assistant Name Role Phone Lee Vines MD Primary Care Prov ider Tamika Snyder DDS Unavailable Reason for Visit * Reason Comments Med Refill Encounter Details Date Type Department Care Team ([facility] st Contact Info) Description 12/15/2022 Refill [facility] MED & PEDS [address], [place] [phone] Lee Vines MD [address] [place] [address] Type 2 diabetes mellitus with hyperglycemia, without [...] Info) Description 01/07/2025 10:45 AM EST Telemedicine [facility] MED & PEDS [address] [place] [address] Lee Vines MD [address] [place] [address] 01/29/2025 10:15 AM EST Office Visit [facility] ADULT DENTAL [address] [place] [address] Socorro Acuña 03/06/2025 2:00 PM EST Clinical Support [facility] MEDICINE [address] [place] [address] Guerita Fall, [place] [address] [place] [address] documented as of this encounter Visit Diagnoses Diagnosis Type 2 diabetes mellitus with hyperglycemia, without long-term current use of insulin (HCC) Alcohol use disorder, severe, dependence (CMS/HCC) (HCC) documented in this encounter Additional Health Concerns Assessment Noted Time PHQ-9 Depression Total Score: 0 05/17/19 23 9:49 AM EDT documented as of this encounter Care Teams Anesthesiologists' Assistant Relationship Specialty Start Date End Date Lee Vines MD [address] [place] [address] PCP - General Internal Medicine 09/05/19 Tamika Snyder DDS [address] [place] [address] Dental Supervisor [facility] 01/30/24 documented as of this encounter
--- OUTSIDE RECORDS SUMMARY | 2025-01-02 15:54 | XMS_ITS | Encounter Summary ---
Author Organization [employer] Address [address] [place] [address] [address] [place] [address] Care Team Providers Care Epic Interface Analyst Name Role Phone Lee Vines MD Primary Care Prov ider Tamika Snyder DDS Unavailable [phone] Encounter Details Date Type Department Care Team (Latest Contact Info) Description 04/01/2019 Abstract [facility] CONVERSIONS Dental, Provider, DDS Social History [...] Info) Description 01/07/2025 10:45 AM EST Telemedicine [facility] MED & PEDS [address] [place] [address] Lee Vines MD [address] [place] [address] 01/29/2025 10:15 AM EST Office Visit [facility] ADULT DENTAL [address] [place] [address] Socorro Acuña 03/06/2025 2:00 PM EST Clinical Support [facility] MEDICINE [address] [place] [address] Guerita Fall, RN [address] [place] [address] documented as of this encounter Visit Diagnoses Not on filedocumented in this encounter Care Teams Epic Interface Analyst Relationship Specialty Start Date End Date Lee Vines MD [address] [place] [address] PCP - General Internal Medicine 09/05/19 Tamika Snyder DDS [address] [place] [address] Dental Certified Cytotechnologist 01/30/24 documented as of this encounter
--- OUTSIDE RECORDS SUMMARY | 2025-01-02 15:54 | XMS_ITS | Encounter Summary ---
Author Organization [employer] Address [address] [facility] [address] [place] [address] Care Team Providers Care Pulpwood Dealer Name Role Phone Lee Vines MD Primary Care Prov ider Tamika Snyder DDS Unavailable Encounter Details Date Type Department Care Team ([facility] Contact Info) Description 04/10/2022 Orders Only [facility] MEDICINE [address] [place] [address] Lee Vines MD [address] [place], [place] [phone] On pre-exposure prophylaxis for HIV (Primary Dx) [...] Department Care Team (Late Contact Info) Description 01/07/2025 10:45 AM EST Telemedicine [facility] CHC MED & PEDS [address] [place], [place] [phone] Lee Vines MD [address] [place], [place] [phone] 01/29/2025 10:15 AM EST Office Visit [facility] CHC ADULT DENTAL [address] [place] [address] Socorro Acuña 03/06/2025 2:00 PM EST Clinical Support [facility] MEDICINE [address] [place] [address] Guerita Fall, RN [address] [place] [address] documented as of this encounter Visit Diagnoses Diagnosis On pre-exposure prophylaxis for HIV- Primary documented in this encounter Care Teams Pulpwood Dealer Relationship Specialty Start Date End Date Lee Vines MD [address] [place] [address] PCP - General Internal Medicine 09/05/19 Tamika Snyder DDS [address] [place] [address] Dental [place] 01/30/24 documented as of this encounter
[2025-01-04 04:33] LABS: ~HepC Num1 0.05 S/CO (0.00-0.79); ~Hepatitis C Antibody Nonreactive (Nonreactive)
[2025-01-06 20:53] LABS: HIV RNA PCR Qn Copies NOT DETECTED copies/mL (NOT DETECTED); HIV RNA PCR Qn Log Copies NOT DETECTED (NOT DETECTED)
== END 2025-01-02 14:05 | disposition home or self-care (01) ==
LOC: HO.HHCL 14:04
PROVIDERS: PCP Internal Medicine; Visit Provider Internal Medicine
DX: Z11.3 Encounter for screening for infections with a predominantly sexual mode of transmission (principal); Z11.4 Encounter for screening for human immunodeficiency virus [HIV]; Z11.59 Encounter for screening for other viral diseases; Z79.899 Other long term (current) drug therapy
CPT/HCPCS: 36415; 86592; 86803; 87536

== ENCOUNTER 2025-01-09 11:29 | Outpatient (REF) | payer MEDICAID, OTHER, SELFPAY ==
[2025-01-09 14:15] LABS: MANUAL DIFF FLAG NO
[2025-01-09 14:22] LABS: Hematocrit 44.6 % (42.0-52.0); Hemoglobin 16.1 g/dl (14.0-18.0); Imm Gran Abs Auto 0.01 X10*3/uL (0.00-0.03); Imm Gran Pct Auto 0.2 % (0.0-0.4); Lymphocytes Absolute Auto 2.0 X10*3/uL (1.2-4.9); Mean Corpuscular HGB Conc 36.1 g/dl (31.0-36.0); Mean Corpuscular Hemoglobin 32.1 pg (27.0-33.0); Mean Corpuscular Volume 89.0 fL (80.0-98.0); NRBC Abs Auto 0.000 X10*3/uL (0.0-0.012); NRBC Pct Auto 0.0 /100WBC (0.0-0.2); Platelet Count 233 X10*3/uL (160-400); Red Blood Count 5.01 X10*6/uL (4.60-5.80); White Blood Count 5.4 X10*3/uL (4.8-10.8)
[2025-01-09 14:36] LABS: Alanine Aminotransferase 29 U/L (0-40); Albumin Level 4.8 g/dL (3.5-5.0); Alkaline Phosphatase 83 U/L (39-117); Anion Gap 14 (12-20); Aspartate Amino Transferase 29 U/L (5-37); Blood Urea Nitrogen 23 mg/dL (9-16); Calcium 9.9 mg/dL (8.4-10.2); Carbon Dioxide 24 mmol/L (22-29); Chloride 104 mmol/L (96-108); Cholesterol 144 mg/dL (<200); Estimated Glomerular Filt Rate > 60; HDL Cholesterol 46 mg/dL (>40); Potassium 4.7 mmol/L (3.3-5.1); Sodium 137 mmol/L (135-145); Total Protein 7.9 g/dL (6.5-8.0); Triglycerides 44 mg/dL (<150)
== END 2025-01-09 11:30 | disposition home or self-care (01) ==
LOC: HO.CHCLDS 11:29
PROVIDERS: Visit Provider Internal Medicine
DX: E11.65 Type 2 diabetes mellitus with hyperglycemia (principal)
CPT/HCPCS: 36415; 80053; 80061; 83036; 85025